=== PATIENT | female | born 1970 | race Caucasian/White ===

== ENCOUNTER → 2016-07-29 07:41 | Outpatient (CLI) | payer BC ==
[2016-01-28 06:24] VITALS: BMI 43.0
[~2016-07-29 07:41] MED LIST: CYCLOBENZAPRINE10 MG PO; HYDROCHLOROTHIA50 MG PO; HYDROCODONE-APA1 TAB PO; KLOR-CON M2020 MEQ PO; LEVSIN/ANASP0.125 MG PO; LYRICA75 MG PO; MOBIC7.5 MG PO; NAPROSYN500 MG PO; NEXIUM20 MG PO; PHENERGAN25 M1 PO; PRISTIQ50 MG PO; VITAMIN D31000 UNI2 PO; ZANAFLEX4 MG PO; ZANTAC150 MG PO
[2016-07-29 09:11] LABS: ALBUMIN 3.3 g/dL (3.4-5.0); BILIRUBIN - DIRECT 0.22 mg/dL (0.00-0.30); BILIRUBIN - INDIRECT 0.68 mg/dL (0.00-1.00); BILIRUBIN - TOTAL 0.9 mg/dL (0.2-1.3); PROTEIN - SERUM 6.5 g/dL (6.4-8.2)
== END | disposition home or self-care (01) ==
LOC: D.US 07-25 11:00
PROVIDERS: Family Medicine
DX: N28.1 Cyst of kidney, acquired (principal); K76.0 Fatty (change of) liver, not elsewhere classified

== ENCOUNTER → 2016-08-03 09:30 | Outpatient (CLI) | payer BC ==
[2016-01-28 06:24] VITALS: BMI 43.0
--- NOTE | 2016-08-03 14:05 | NUR ---
Nutrition education for gastric sleeve: S: Pt reports being heavy most of her adult life. Pt has a bad knee that needs replaced. Pt is pre-DMT2 and has a fatty liver. Pt also has fibromyalgia. Pt has purchased protein supplements, 7 pack bariatric meal prep containers and a book about bariatric surgery. Pts post-op weight goal is 180#. O: 45 y/o female Ht: 5'7" Wt: 289# IBW: 135#+/-10% BMI: 45.3 Meds: Teresaa A/P: Reviewed pre/post op diet, 1/2 cup meal size, liquids between meals, dumping syndrome, no straws or carbonated beverages, daily multivitamins and minerals for life, reviewed sample menus, no sweets, pouch stretching, no alcohol, eating out and emotional eating, daily exercise and increasing daily physical activity. Pt with very good understanding of information provided. Questions answered. Pt with a realistic post-op weight goal of 180#. RDN feels pt is ready to make the necessary changes needed to be successful with bariatric surgery. Provided pt with printed diet information and RDN name and phone number. RDN will be available if needed. Thank you for the consult.
== END | disposition home or self-care (01) ==
LOC: D.FANS 07-25 10:00
DX: Z01.818 Encounter for other preprocedural examination (principal)

== ENCOUNTER → 2016-08-18 10:36 | Outpatient (CLI) | payer BC ==
[2016-01-28 06:24] VITALS: BMI 43.0
== END | disposition home or self-care (01) ==
LOC: D.RT 10:36
DX: R06.09 Other forms of dyspnea (principal)

== ENCOUNTER 2016-09-08 15:53 | Emergency (ER) | payer BC ==
[2016-01-28 06:24] VITALS: BMI 43.0
[2016-09-08 17:51] LABS: APPEARANCE HAZY (CLEAR); BACTERIA MODERATE /hpf (NONE SEEN); BILIRUBIN NEGATIVE (NEGATIVE); COLOR YELLOW (YELLOW); GLUCOSE NEGATIVE (NEGATIVE); KETONE NEGATIVE (NEGATIVE); LEUKOCYTE ESTERASE TRACE (NEGATIVE); MUCUS <1+ /lpf (NONE SEEN); NITRITE NEGATIVE (NEGATIVE); PROTEIN NEGATIVE (NEGATIVE); SPECIFIC GRAVITY 1.015 (1.005-1.020); UROBILINOGEN NORMAL (NORMAL)
[2016-09-08 17:52] LABS: CALCIUM OXALATE CRYSTALS 0-5 /hpf (NONE SEEN)
[2016-09-08 18:32] LABS: BASOPHILS 0.4 % (0.0-2.0); EOSINOPHILS 1.5 % (0-7); HEMOGLOBIN 13.4 g/dL (12-16); IMMATURE GRANULOCYTES 0.1 % (0-5); LYMPHOCYTES 27.6 % (15-50); MCHC 34.4 g/dL (31.0-37.0); MCV 87.2 fL (80.0-100.0); MEAN PLATELET VOLUME 9.4 fL (7.4-10.4); MONOCYTES 7.3 % (2-11); NEUTROPHILS 63.1 % (40-80); PLATELET COUNT 268 10x3/uL (130-400); RBC 4.47 10x6/uL (4.00-5.40); RDW 13.5 % (11.5-14.5); WBC 7.4 10x3/uL (4.8-10.8)
[2016-09-08 18:56] LABS: ALBUMIN 3.3 g/dL (3.4-5.0); ANION GAP 14.4 mmol/L (8-16); BILIRUBIN - TOTAL 0.44 mg/dL (0.2-1.3); CALCIUM 9.1 mg/dL (8.5-10.1); CARBON DIOXIDE 27.2 mmol/L (21.0-32.0); CREATININE - SERUM 0.9 mg/dL (0.6-1.3); POTASSIUM - SERUM 3.6 mmol/L (3.5-5.1); PROTEIN - SERUM 6.5 g/dL (6.4-8.2)
== END 2016-09-08 19:28 | disposition home or self-care (01) ==
LOC: D.ER 15:53
PROVIDERS: Physician Assistant
DX: N93.9 Abnormal uterine and vaginal bleeding, unspecified (principal); K62.5 Hemorrhage of anus and rectum; N39.0 Urinary tract infection, site not specified

== ENCOUNTER → 2016-09-08 19:30 | Outpatient (CLI) | payer BC ==
[2016-01-28 06:24] VITALS: BMI 43.0
== END | disposition home or self-care (01) ==
LOC: D.SLEEP 09-04 20:00
DX: G47.33 Obstructive sleep apnea (adult) (pediatric) (principal)

== ENCOUNTER → 2016-10-07 10:57 | Outpatient (CLI) | payer BC ==
[2016-01-28 06:24] VITALS: BMI 43.0
[2016-10-07 11:17] LABS: BASOPHILS 0.3 % (0-2); EOSINOPHILS 1.6 % (0-7); IMMATURE GRANULOCYTES 0.3 % (0-5); LYMPHOCYTES 21.5 % (15-50); MCHC 34.1 g/dL (31.0-37.0); MCV 87.8 fL (80.0-100.0); MEAN PLATELET VOLUME 9.5 fL (7.4-10.4); MONOCYTES 6.5 % (2-11); NEUTROPHILS 69.8 % (40-80); PLATELET COUNT 282 10x3/uL (130-400); RBC 4.67 10x6/uL (4.00-5.40); RDW 13.3 % (11.5-14.5)
[2016-10-07 11:31] LABS: APTT 28.2 SECONDS (22.8-39.4); INR 0.96 (0.85-1.17); PROTIME 12.6 SECONDS (11.6-15.0)
[2016-10-07 11:49] LABS: HELICOBACTER PYLORI IGG NEGATIVE (NEGATIVE)
[2016-10-07 11:56] LABS: ALBUMIN 3.3 g/dL (3.4-5.0); ALKALINE PHOSPHATASE 54 U/L (46-116); ALT (SGPT) 19 U/L (10-68); BILIRUBIN - DIRECT 0.09 mg/dL (0.00-0.30); BILIRUBIN - INDIRECT 0.44 mg/dL (0.00-1.00); BILIRUBIN - TOTAL 0.53 mg/dL (0.2-1.3); CALC OSMOLALITY 276 mosm/kg (275-300); CALCIUM 9.5 mg/dL (8.5-10.1); CARBON DIOXIDE 30.1 mmol/L (21.0-32.0); CHLORIDE - SERUM 103 mmol/L (98-107); CHOL - HDL RATIO 1.8 ratio (2.3-4.1); CHOLESTEROL, TOTAL 147 mg/dL (0-200); CREATININE - SERUM 0.8 mg/dL (0.6-1.3); GLUCOSE 95 mg/dL (74-106); HDL CHOLESTEROL 84 mg/dL (32-96); LDL CHOLESTEROL 42 mg/dL (0-100); LDL-HDL RATIO 0.5 ratio (1.5-3.5); POTASSIUM - SERUM 3.9 mmol/L (3.5-5.1); PROTEIN - SERUM 7.5 g/dL (6.4-8.2); SODIUM 138 mmol/L (136-145); T4 THYROXINE 8.6 ug/dL (4.7-13.3); THYROID STIMULATING HORMONE 1.76 uIU/mL (0.36-3.74); TRIGLYCERIDE 107 mg/dL (30-200); UREA NITROGEN 16 mg/dL (7-18); eGFR NON AFRICAN AMERICAN 82 mL/min (90-120)
[2016-10-08 07:27] LABS: FOLATE (FOLIC ACID) - SERUM 13.3 ng/mL (>3.0)
[2016-10-10 08:09] LABS: HELICOBACTER PYLORI IGM AB 5.6 units (0.0-8.9)
[2016-10-10 09:09] LABS: VITAMIN D 25 HYDROXY 42.4 ng/mL (30.0-100.0)
== END | disposition home or self-care (01) ==
LOC: D.LAB 10:57
PROVIDERS: Surgery
DX: Z00.00 Encounter for general adult medical examination without abnormal findings (principal)

== ENCOUNTER → 2016-10-12 07:54 | Outpatient (CLI) | payer BC ==
[2016-01-28 06:24] VITALS: BMI 43.0
== END | disposition home or self-care (01) ==
LOC: D.RAD 07:54
DX: K29.70 Gastritis, unspecified, without bleeding (principal); E66.01 Morbid (severe) obesity due to excess calories

== ENCOUNTER 2016-10-17 08:59 | Day surgery (SDC) | payer BC ==
[~2016-10-17] VITALS: Ht 170.2 cm; Wt 132.3 kg
[2016-10-17] MEDS ORDERED: VITAMIN B-12500 MC1 PO (11:08)
[2016-10-17] MEDS ORDERED: LUNESTA2 M1 PO (11:08)
[2016-10-17] MEDS ORDERED: PROBIOTIC1 EAC1 PO (11:09)
[2016-10-17] MEDS ORDERED: VITAMIN D5000 UNIT PO (11:09)
[2016-10-17 11:13] VITALS: Ht 170.2 cm; Wt 132.3 kg
[2016-10-17 11:50] LABS: HEMATOCRIT 38.1 % (36.0-48.0); HEMOGLOBIN 13.1 g/dL (12-16); MCH 29.9 pg (26.0-34.0); MCHC 34.4 g/dL (31.0-37.0); MEAN PLATELET VOLUME 10.2 fL (7.4-10.4); RBC 4.38 10x6/uL (4.00-5.40); RDW 13.3 % (11.5-14.5); WBC 6.3 10x3/uL (4.8-10.8)
--- NOTE | 2016-10-17 13:58 | NUR ---
1330-RECD TO ROOM FROM GI LAB. RESP WITH EASE. IV PATENT. 1335-FULL LIQUIDS SERVED. 1355-IV D/C. DISCHARGE INSTRUCTIONS REVIEWED. 1400-D/C HOME VIA WHEELCHAIR WITH SPOUSE.
--- NOTE | 2016-10-18 08:09 | OP ---
PATIENT NAME: RIMA LARSON MEDICAL RECORD: [id number] :72 LOCATION:D[facility] ADMISSION DATE: SURGEON: LAUREN DAVIS MD DATE OF OPERATION: 10/17/2016 SURGEON: Lauren Davis MD PREOPERATIVE DIAGNOSES: 1. Gastritis. 2. Morbid obesity. 3. Body mass index 45-50. 4. Fatty liver. POSTOPERATIVE DIAGNOSES: 1. Gastritis. 2. Morbid obesity. 3. Body mass index 45-50. 4. Fatty liver. PROCEDURES PERFORMED: Esophagogastroduodenoscopy with biopsy. ANESTHESIA: Total intravenous anesthesia. ESTIMATED BLOOD LOSS: Minimal. Case was contaminated. SPECIMENS: 1. Duodenum. 2. Antrum. 3. Stomach. 4. GE junction. OPERATIVE COURSE: After consent was obtained, the patient was taken to the operating room and placed in the supine position on the operating table. Next, total intravenous anesthesia was given. A timeout was taken to confirm the correct patient and procedure. Hurricaine Woodridge was administered. A bite block was placed. The scope was passed over to the biteblock into the oropharynx. It was passed posterior to the epiglottis into the upper esophageal sphincter. Scope was advanced under direct endoscopic vision into the esophagus and stomach. The stomach was insufflated. The pylorus was identified. The pylorus was intubated. The scope was advanced into the first and second portion of the duodenum. The duodenum appeared within normal limits. Multiple duodenal biopsies were taken. The scope was withdrawn to the pylorus. There was linear streaking associated with chronic enteritis noted in the region of the prepylorus and antral region. Multiple biopsies were taken. There was some mild gastritis noted upon evaluation in the stomach. Multiple biopsies taken. The scope was retroflexed. There is a moderate sized hiatal hernia noted. Upon withdrawal of the scope to the GE junction, it was noted that it was linear ulcerations of the GE junction consistent with grade I esophagitis as well as a moderate sized hiatal hernia. Multiple biopsies were taken at the GE junction. The scope was reinserted stomach, the stomach desufflated. The esophagus was evaluated upon withdrawal of the scope. There were no abnormalities associated with the esophagus. At the end of the case, all needle and instrument counts were correct. No complications occurred. The patient tolerated the procedure OPERATIVE REPORT [id number] RIMA LARSON well. Postoperatively, the patient was transferred to the recovery room in satisfactory condition. TRANSINT:[id number] Voice Confirmation ID: [id number] DOCUMENT ID: [id number] LAUREN DAVIS MD at 0809 CC: [id number] DICTATION DATE: 10/17/16 1312 ACUTE CARE SURGEON: 10/17/16 2305 [facility] 10/17/16 [place] [id number] [place] [id number]
== END 2016-10-17 14:00 | disposition home or self-care (01) ==
LOC: D.OPS 08:59
PROVIDERS: Anesthesiology
DX: K29.70 Gastritis, unspecified, without bleeding (principal); E66.01 Morbid (severe) obesity due to excess calories; Z68.42 Body mass index [BMI] 45.0-49.9, adult; K76.0 Fatty (change of) liver, not elsewhere classified

== ENCOUNTER 2016-10-26 05:13 | Inpatient (IN) | payer OTHER ==
[2016-10-25 10:00] LABS: HEMATOCRIT 41.9 % (36.0-48.0); HEMOGLOBIN 14.1 g/dL (12-16); MCH 29.8 pg (26.0-34.0); MCHC 33.7 g/dL (31.0-37.0); MCV 88.6 fL (80.0-100.0); MEAN PLATELET VOLUME 9.6 fL (7.4-10.4); RBC 4.73 10x6/uL (4.00-5.40); RDW 13.4 % (11.5-14.5); WBC 8.3 10x3/uL (4.8-10.8)
[2016-10-25 10:15] LABS: CALC OSMOLALITY 276 mosm/kg (275-300); CARBON DIOXIDE 26.2 mmol/L (21.0-32.0); CHLORIDE - SERUM 105 mmol/L (98-107); CREATININE - SERUM 0.7 mg/dL (0.6-1.3); GLUCOSE 99 mg/dL (74-106); SODIUM 138 mmol/L (136-145); UREA NITROGEN 15 mg/dL (7-18); eGFR NON AFRICAN AMERICAN > 90 mL/min (90-120)
[~2016-10-26] VITALS: Ht 170.2 cm; Wt 132.3 kg
[2016-10-26] VITALS (8 sets, daily range): BP systolic 116–141; BP diastolic 59–83; Ht 170.2 cm; Wt 132.3 kg
--- NOTE | ~2016-10-26 | OP ---
PATIENT NAME: RIMA LARSON MEDICAL RECORD: [id number] :72 LOCATION:D[facility] ADMISSION DATE:10/26/16 SURGEON: ALYSA BETANCUR MD DATE OF OPERATION: 10/26/2016 PHARMACEUTICAL PROCESS ENGINEER NOTE I assisted Dr. MAC Davis with the laparoscopic hiatal hernia repair as well as laparoscopic sleeve gastrectomy for morbid obesity. My involvement in the operation included scrubbing in after the first trocar had been placed. I placed 2 trocars on the left side. I ran the camera during a portion of the case. I retracted tissue. I used the Harmonic scalpel to dissect up into the left side of the mediastinum; also I the stomach and esophagus from the left jaime. I excised some of the cardial fat. I retracted the esophagus as the hiatal hernia repair was being performed by Dr. Davis. I suctioned. I irrigated. I retracted while the gastrectomy was being performed. I retracted the suture as he was performing the sleeve gastrectomy. I cut the suture. I irrigated. I manipulated the bougie. I aspirated fluid. I then scrubbed out as the trocar sites were being closed. TRANSINT:[id number] Voice Confirmation ID: [id number] DOCUMENT ID: [id number] ALYSA BETANCUR MD CC: [id number] DICTATION DATE: 10/26/1639 POSITION DESCRIPTION MANAGER: 10/26/16 [address] [facility] [address] [place] [address]
[~2016-10-26 05:13] MED LIST changes: +LUNESTA2 M1 PO; +PROBIOTIC1 EAC1 PO; +VITAMIN B-12500 MC1 PO; +VITAMIN D250000 UNIT PO; +VITAMIN D5000 UNIT PO
--- NOTE | 2016-10-26 10:50 | NUR ---
RECEIVED TO ROOM 2228 FROM PACU AT THIS TIME VIA STRETCHER. PT TRANSFERRED WITH 4 PERSON ASSIST TO BED. FAMILY AT BEDSIDE. PT IS ALERT AND ORIENTED. POST OP VITAL SIGNS INITIATED PER PROTOCOL. SCD'S APPLIED TO BLE AND WNL. OXYGEN ON 2L WITH RESPIRATIONS SHALLOW AND EVEN. OXYGEN SATURATIONS 96%. PROVIDED PT WITH INCENTIVE SPIROMETER PER ORDER AND INSTRUCTED PT AND HER SPOUSE ON USE. PT AND SPOUSE VERBALIZED UNDERSTANDING. IV TO RIGHT WRIST PATENT WITH LR AT 150 ML/HR PER ORDER. POST OP SIGN STATING NO CARBONATION, STRAWS AND PT MUST DRINK 30ML OF LIQUID EVERY 30 MINUTES APPLIED TO DOOR AND ABOVE PT'S BED. PT AND FAMILY VERBALIZED UNDERSTANDING. PROVIDED PT WITH ICE CHIPS AND A SPOON. CUP OF ICE WATER WITH A LID AND NO STRAW IN ROOM WITH TWO 30 ML MEDICATION CUPS FOR PROPER MEASUREMENT. INSTRUCTED PT TO START 30 ML EVERY 30 MINUTES BEGINNING AT 11 O'CLOCK. ONCE SHE WAS FINISHED WITH A CUP TO TURN IT OVER ON A [place], SO THAT SHE COULD EASILY KEEP TRACK OF WHAT SHE HAD ALREADY TAKEN IN FOR THAT HOUR. PT AND SPOUSE VERBALIZED UNDERSTANDING. [place] HAT APPLIED TO COMMODE, SO THAT STRICT I&O'S COULD BE OBTAINED PER ORDER. CALL LIGHT IN REACH AND FAMILY REMAINS AT BEDSIDE. WILL CONTINUE WITH PLAN OF CARE.
--- NOTE | 2016-10-26 11:14 | NUR ---
PRN SMOKE CONTROL SUPERVISOR INITIATED AND INSTRUCTED PT ON USE AT THIS TIME. PRN MYLICON, ZOFRAN AND TORADOL ADMINISTERED PER ORDERS. PAIN 9/10 INCISIONALLY AND PT COMPLAINING OF GAS PAIN. EXPLAINED TO PT AND HER FAMILY THAT SHE WOULD BE GETTING UP AT 3 O'CLOCK TO AMBULATE PER DR BOYER'S ORDERS. PT AND FAMILY VERBALIZED UNDERSTANDING. CALL LIGHT IN REACH, WILL CONTINUE WITH PLAN OF CARE.
--- NOTE | 2016-10-26 13:25 | NUR ---
CONTINUES WITH 30ML OF FLUID EVERY 30 MINUTES PER ORDER. FAMILY REMAINS AT BEDSIDE. PT DENIES NAUSEA. DIRECTOR OF PROFESSIONAL SERVICES IN USE. SCD'S ON AND IN WORKING ORDER. WILL CONTINUE WITH PLAN OF CARE.
--- NOTE | 2016-10-26 16:25 | NUR ---
AMBULATING AROUND NURSES STATION X1 WITH STANDBY ASSISTANCE. PT ASSISTED TO BATHROOM WHERE SHE VOIDED 500 ML OF DARK, CONCENTRATED URINE. PT BACK TO BED PER AND SCD'S ON AND IN WORKING ORDER. CALL LIGHT IN REACH, WILL CONTINUE WITH PLAN OF CARE.
--- NOTE | 2016-10-26 16:46 | NUR ---
ORDER OBTAINED TO CHANGE CARDIOVASCULAR SONOGRAPHER SETTINGS. ORDER PLACED INTO MEDITECH AND CARDIOVASCULAR SONOGRAPHER SETTINGS CHANGED PER ORDER. CALL LIGHT IN REACH AND FAMILY REMAINS AT BEDSIDE. CALL LIGHT IN REACH. SCD'S ON AND INCENTIVE SPIROMETER IN USE. WILL CONTINUE WITH PLAN OF CARE.
--- NOTE | 2016-10-26 20:30 | NUR ---
AWAKE ALERT. NO COMPLAINTS VOICED. COIN MACHINE COLLECTOR MORPHINE IN USE FOR PAIN CONTROL DRSGS TO ABD INCISIONS CLEAN AND INTACT. MOTHER AT BEDSIDE.
--- NOTE | 2016-10-26 22:01 | NUR ---
AMBULATED X 2 TRIPS AROUND UNIT. TOLERATED WELL. NO COMPLAINTS OF NAUSEA OR DIZINESS.
--- NOTE | 2016-10-27 00:39 | NUR ---
RESTING QUIETLY. NO DISTRESS NOTED. CL IN REACH
[2016-10-27 04:00] VITALS: BP 118/71
[2016-10-27 05:36] LABS: BASOPHILS 0 % (0-2); EOSINOPHILS 0 % (0-7); HEMOGLOBIN 12.4 g/dL (12-16); IMMATURE GRANULOCYTES 0.1 % (0-5); LYMPHOCYTES 5.8 % (15-50); MCH 29.5 pg (26.0-34.0); MCHC 33.5 g/dL (31.0-37.0); MCV 87.9 fL (80.0-100.0); MEAN PLATELET VOLUME 9.8 fL (7.4-10.4); MONOCYTES 7.1 % (2-11); PLATELET COUNT 275 10x3/uL (130-400); RBC 4.21 10x6/uL (4.00-5.40); RDW 13.3 % (11.5-14.5)
[2016-10-27 05:43] LABS: WBC 13.5 10x3/uL (4.8-10.8)
[2016-10-27 05:59] LABS: ALBUMIN 2.8 g/dL (3.4-5.0); ANION GAP 11.5 mmol/L (8-16); BILIRUBIN - TOTAL 0.51 mg/dL (0.2-1.3); CALCIUM 8.3 mg/dL (8.5-10.1); CARBON DIOXIDE 26.5 mmol/L (21.0-32.0); PROTEIN - SERUM 6.6 g/dL (6.4-8.2)
--- NOTE | 2016-10-27 06:12 | NUR ---
AWAKE WIHT NO COMPLAINTS VOICED. CL IN REACH.
--- NOTE | 2016-10-27 07:20 | NUR ---
ASSSESSMENT COMPLETE. IV TO R WRIST PATENT. LR INFUSING AT 150 CC/HR VIA PUMP. PYTHON ARCHITECT MORPHINE 2-10-30 IN USE FOR PAIN CONTROL. SCDS IN USE TO BILAT LEGS. O2 2L NC IN USE. ABDOMINAL INCISIONS X 6 WITH STERI STRIPS INTACT.
--- NOTE | 2016-10-27 08:00 | NUR ---
OFF FLOOR TO XRAY VIA WC.
[2016-10-27 08:02] VITALS: BP 127/71
--- NOTE | 2016-10-27 08:29 | OP ---
PATIENT NAME: RIMA LARSON MEDICAL RECORD: [id number] :72 LOCATION:[facility] ADMISSION DATE:10/26/16 SURGEON: LAUREN DAVIS MD DATE OF OPERATION: 10/26/2016 SURGEON: Lauren Davis MD PREOPERATIVE DIAGNOSES: 1. Morbid obesity. 2. Degenerative joint disease involving multiple joints. 3. Dyspnea on exertion. 4. Body mass index 45-49.9. 5. Fatty liver. 6. Urinary incontinence. 7. Varicose veins. POSTOPERATIVE DIAGNOSES: 1. Morbid obesity. 2. Degenerative joint disease involving multiple joints. 3. Dyspnea on exertion. 4. Body mass index 45-49.9. 5. Fatty liver. 6. Urinary incontinence. 7. Varicose veins. PROCEDURE PERFORMED: 1. Laparoscopic hiatal hernia repair. 2. Laparoscopic vertical sleeve gastrectomy. ANESTHESIA: General. COMPLICATIONS: None. SPECIMENS: Partial gastrectomy. Case is clean contaminated. ESTIMATED BLOOD LOSS: 40 cc. OPERATIVE COURSE: After consent was obtained, the patient was taken to the operating room and placed in the supine position on the operating table. Next, general anesthesia was given via endotracheal intubation. After a timeout was performed that confirmed the correct patient and procedure, the abdomen was prepped and draped in typical sterile fashion. Local anesthetic was injected just above the umbilicus. A stab incision was made with an 11-blade scalpel. Using an 11-mm bladeless optical trocar, the abdomen was entered under direct laparoscopic vision. Adequate pneumoperitoneum was achieved. The abdominal cavity was inspected. There was no evidence of bowel injury. No evidence of bleeding. At this time, the patient was placed in the steep reverse Trendelenburg position. The remaining trocars were placed, two 5-mm trocars in the left lateral quadrant, a 12-mm trocar and 5-mm trocar in the right lateral quadrant, placing the Terell liver retractor in the subxiphoid position. All trocars were placed after the administration of local anesthetic and under direct laparoscopic vision, a Terell liver retractor was then used to elevate the left lobe of the liver, exposing the GE junction, the pylorus was OPERATIVE REPORT [id number] RIMA LARSON identified. Starting approximately 6 cm from the pylorus, the greater curvature of the stomach was mobilized. The short gastrics were taken with Harmonic scalpel. The greater curvature was mobilized all the way to the level of left crura. The left crura was skeletonized. At this time, the gastrohepatic ligament was opened with the Harmonic scalpel. Dissection continued to the level of the right crura with the Harmonic scalpel. Right crura was skeletonized. Circumferential dissection of the hiatal hernia was performed at the GE junction. The mediastinum was bluntly dissected until approximately 4 cm of intraabdominal esophagus were obtained. The hernia sac was excised. The hiatal hernia defect was closed with an 0 polypropylene Stratafix suture in a continuous fashion. At this time, a 40-Slovak ViSiGi bougie was passed transorally into the stomach. It was advanced to the pylorus along the lesser curvature of the stomach, it was placed to suction. A sleeve gastrectomy was performed using the linear powered stapler with gold load heidi along the course of the bougie. The partial gastrectomy specimen was placed in the left lateral quadrant. The proximal edge was imbricated using 2-0 Stratafix suture. The abdomen was copiously irrigated and suctioned. The sleeve was placed. The upper abdomen was then filled with irrigation. The ViSiGi device was used to insufflate the stomach. A bowel clamp was placed across the first portion of the duodenum. The stomach was inflated with the ViSiGi bougie. A leak test was performed. There was no evidence of leak. At this time, the ViSiGi was placed back to suction. The suction was turned off and the ViSiGi device was removed. The stomach was desufflated appropriately. All remaining irrigation of the abdomen was suctioned. The entire abdominal cavity was inspected. There was no evidence of bowel injury. No evidence of bleeding. The Terell liver retractor was removed. The 5-mm scope was inserted. The 11-mm trocar and 12-mm trocar were removed. Prior to closure of the 12-mm trocar site, the partial gastrectomy specimen was removed; it was grasped with the tenaculum. We removed the 12-mm trocar site and sent for permanent pathology. At this time, all remaining instruments removed. The abdomen was desufflated. Trocars were removed. Skin was closed with 4-0 Monocryl, Mastisol and Steri-Strips. At the end of the case, all needle and instrument counts were correct. No complications occurred. The patient was extubated and transferred to the PACU in stable condition. TRANSINT:[id number] Voice Confirmation ID: [id number] DOCUMENT ID: [id number] LAUREN DAVIS MD at 0829 CC: [id number] DICTATION DATE: 10/26/16 0956 EMBEDDED SYSTEMS ENGINEER: 10/26/16 1118 [place] [address]
[2016-10-27] MEDS ORDERED: HYDROCODON-ACE1 EAC7 PO (08:30)
--- NOTE | 2016-10-27 09:50 | NUR ---
D/C PAPERWORK REVIEWED WITH PT AND SPOUSE. DENIES QUESTIONS OR CONCERNS. IV TO RIGHT WRIST D/C WITH CATH TIP INTACT. CALL LIGHT IN REACH, WILL CONTINUE WITH PLAN OF CARE.
--- NOTE | 2016-10-27 10:09 | NUR ---
Nutrition education for post-op gastric sleeve: RDCharla visited with pt re: post-op diet instructions. Pt with very good understanding of post-op diet restrictions. Pt has all information for post-op diet at home. Questions answered. Thank you for the consult.
== END 2016-10-27 10:03 | disposition home or self-care (01) | DRG 621 ==
LOC: D.SDCHOLD 05:13 → D.MS 05:13 → D.SDCHOLD 07:30 → D.MS 09:54
PROVIDERS: Anesthesiology; ADMIT Surgery
PROC: 0BQS4ZZ (ICD-10-PCS; principal; 2016-10-26 07:30)
PROC: 0BQR4ZZ (ICD-10-PCS; principal; 2016-10-26 07:30)
PROC: 0DB64Z3 Excision of Stomach, Percutaneous Endoscopic Approach, Vertical (ICD-10-PCS; principal; 2016-10-26 07:30)
DX: E66.01 Morbid (severe) obesity due to excess calories (principal); Z68.42 Body mass index [BMI] 45.0-49.9, adult; M15.9 Polyosteoarthritis, unspecified; K76.0 Fatty (change of) liver, not elsewhere classified; R32 Unspecified urinary incontinence; I83.90 Asymptomatic varicose veins of unspecified lower extremity; K44.9 Diaphragmatic hernia without obstruction or gangrene

== ENCOUNTER → 2016-11-30 14:00 | Outpatient (CLI) | payer BC ==
[2016-10-26 11:37] VITALS: BMI 45.7
[~2016-11-30 14:00] MED LIST changes: +HYDROCODON-ACE1 EAC7 PO
== END | disposition home or self-care (01) ==
LOC: D.US 13:30
DX: R80.9 Proteinuria, unspecified (principal)

== ENCOUNTER 2016-12-20 11:47 | Emergency (ER) | payer BC ==
[2016-10-26 11:37] VITALS: BMI 45.7
[2016-12-20 13:05] LABS: BASOPHILS 0.3 % (0-2); EOSINOPHILS 1.7 % (0-7); HEMATOCRIT 40.8 % (36.0-48.0); HEMOGLOBIN 14.3 g/dL (12-16); IMMATURE GRANULOCYTES 0.3 % (0-5); LYMPHOCYTES 15.6 % (15-50); MCH 30.1 pg (26.0-34.0); MCV 85.9 fL (80.0-100.0); MEAN PLATELET VOLUME 10.9 fL (7.4-10.4); MONOCYTES 8.2 % (2-11); NEUTROPHILS 73.9 % (40-80); PLATELET COUNT 275 10x3/uL (130-400); RBC 4.75 10x6/uL (4.00-5.40); RDW 15.3 % (11.5-14.5); WBC 7.6 10x3/uL (4.8-10.8)
[2016-12-20 13:20] LABS: ALBUMIN 3.4 g/dL (3.4-5.0); ALKALINE PHOSPHATASE 51 U/L (46-116); ALT (SGPT) 19 U/L (10-68); BILIRUBIN - TOTAL 0.63 mg/dL (0.2-1.3); CALC OSMOLALITY 274 mosm/kg (275-300); CALCIUM 8.9 mg/dL (8.5-10.1); CARBON DIOXIDE 18.2 mmol/L (21.0-32.0); CHLORIDE - SERUM 103 mmol/L (98-107); CREATININE - SERUM 0.7 mg/dL (0.6-1.3); GLUCOSE 104 mg/dL (74-106); MAGNESIUM - SERUM 1.6 mg/dL (1.8-2.4); POTASSIUM - SERUM 3.7 mmol/L (3.5-5.1); PROTEIN - SERUM 7.4 g/dL (6.4-8.2); SODIUM 139 mmol/L (136-145); UREA NITROGEN 4 mg/dL (7-18); eGFR NON AFRICAN AMERICAN > 90 mL/min (90-120)
[2016-12-20 16:57] LABS: APPEARANCE HAZY (CLEAR); BILIRUBIN NEGATIVE (NEGATIVE); COLOR DK YELLOW (YELLOW); GLUCOSE NEGATIVE (NEGATIVE); KETONE LARGE mg/dL (NEGATIVE); LEUKOCYTE ESTERASE TRACE (NEGATIVE); NITRITE NEGATIVE (NEGATIVE); PROTEIN TRACE mg/dL (NEGATIVE); SPECIFIC GRAVITY 1.025 (1.005-1.020); UROBILINOGEN NORMAL (NORMAL)
[2016-12-20 16:58] LABS: EPITHELIAL CELLS 0-5 /hpf (0-5); RED CELLS - URINE >50 /hpf (0-5)
[2016-12-20 16:59] LABS: BACTERIA FEW /hpf (NONE SEEN); YEAST >1+ /hpf (NONE SEEN)
== END 2016-12-20 17:15 | disposition home or self-care (01) ==
LOC: D.ER 11:47
PROVIDERS: Emergency Medicine
DX: R10.9 Unspecified abdominal pain (principal); R11.10 Vomiting, unspecified; E83.42 Hypomagnesemia

== ENCOUNTER 2016-12-22 14:09 | Inpatient (IN) | payer BC ==
[~2016-12-22] VITALS: Ht 170.2 cm; Wt 109.8 kg
--- NOTE | ~2016-12-22 | HEMODYNAMI ---
PATIENT:RIMA LARSON MEDICAL RECORD: [id number] : 72 LOCATION:[facility] ADMISSION DATE: 12/22/16 Generatedon:12/30/201616:23 Patient name: RIMA LARSON Patient #: [id number] SSN: : 1970 Date of study: 12/30/2016 Page: Of Hemodynamic Procedure Report Patient Data Patient Demographics Procedure consent was obtained First Name: RIMA Gender: Female Last Name: NEO : 1970 Middle Initial: MIKEY Age: 46 year(s) Patient #: [id number] Race: Unknown Additional ID: [id number] Contact details Address: [address] [place] [address] RO[address] State: [place] City: [place] Zip code: [address] Admission Admission Data Admission Date: 12/22/2016 Admission Time: 17:04 Room #: D.2216 Procedure Procedure Types Cath Procedure Peripheral Cath Diagnostic Procedure Miscellaneous Procedure Description Procedure Date Procedure Date: 12/30/2016 Procedure Start Time: 16:14 Procedure Staff Name Function Oneal Hatfield MD Performing Physician Brandon Mckeon RT Scrub Brandon Mckeon RT Monitor Tamika Mckeon RN Nurse Procedure Data Cath Procedure Fluoroscopy Diagnostic fluoroscopy Total fluoroscopy Time: 0.7 time: 0.7 min min Diagnostic fluoroscopy Total fluoroscopy dose: 3 dose: 3 mGy mGy Hemodynamics Rest Pre Cath Intra NCS Post Cath Procedure Log Time Note 15:55:47 Time tracking: Regular hours 15:56:21 Brandon Mckeon RT (R) (CV) sent for patient. Start room use. 15:56:39 Patient received from Med/Surg to IR Alert and oriented. Tansferred to table in Supine position. 15:56:42 Signed procedure consent form obtained from patient. 15:56:44 Use device set PICC 15:56:46 Bag Decanter opened to sterile field. 15:56:46 Sterile Angiographic Pack opened to sterile field. 15:56:48 SorbaView Shield opened to sterile field. 15:56:51 Pre-op teaching completed and patient verbalized understanding. 15:56:56 Patient pain scale 0/10 no pain. 15:57:06 Right Arm area was prepped with chlora-prep and draped in sterile fashion 16:02:32 --------ALL STOP TIME OUT------ 16:02:33 Final Timeout: patient, procedure, and site verified with staff and physician. All members of the team are in agreement. 16:14:03 Procedure started. 16:14:03 Full Disclosure recording started 16:14:10 Local anesthetic to right arm with Lidocaine 1% by Oneal Hatfield MD.INITIAL ACCESS ONLY 16:17:21 SorbaView Shield opened to sterile field. 16:17:29 PowerPICC 5Fr double lumen catheter opened to sterile field. 16:19:20 picc trimmed 40 cm 16:21:40 Procedure ended.(Physican Out) 16:22:00 Fluoroscopy time 00.70 minutes. 16:22:06 Fluoroscopy dose: 3 mGy 16:22:06 Flurop Dose total: 3 16:22:09 Sharps counted by scrub and verified by R.N. 16:22:18 Post right arm:stable 16:22:20 Post Procedure Pulses reassessed and unchanged 16:22:29 Post procedure instruction explained to patient.Patient verbalizes understanding. 16:22:30 Procedure and supply charges have been captured, reviewed, submitted and are correct. 16:22:32 Report given to Med/Surg. 16:22:37 Patient transfered to Med/Surg with Wheelchair. Device Usage Item Name Manufacture Quantity Catalog Hospital Part Current Minimal Lot# / Number Charge Number Stock Stock Serial# Code Bag Decanter Microtek 1 2002 [id number] 5 [employer] Sterile Cardinal 1 [id number] 5 Angiographic Health Pack SorbaView Centurion 2 [id number] 5 Shield PowerPICC Bard 1 [id number] 5 5Fr double lumen catheter Signature Audit [place] Stage Time Signature Unsigned Intra-Procedure 12/30/2016 Brandon 4:23:41 PM Shuffield RT (R) (CV) Signatures Monitor : Brandon Signature : Shuffield RT Date : Time : [address] [place] [address]
[2016-12-22 15:33] LABS: APPEARANCE SLT CLOUDY (CLEAR); BILIRUBIN NEGATIVE (NEGATIVE); COLOR YELLOW (YELLOW); GLUCOSE NEGATIVE (NEGATIVE); KETONE LARGE mg/dL (NEGATIVE); LEUKOCYTE ESTERASE NEGATIVE (NEGATIVE); NITRITE NEGATIVE (NEGATIVE); PROTEIN TRACE mg/dL (NEGATIVE); SPECIFIC GRAVITY 1.025 (1.005-1.020); UROBILINOGEN NORMAL (NORMAL)
[2016-12-22 15:35] LABS: BACTERIA FEW /hpf (NONE SEEN); EPITHELIAL CELLS 0-5 /hpf (0-5); WHITE CELLS - URINE RARE /hpf (0-5)
[2016-12-22 15:50] LABS: BASOPHILS 0.5 % (0-2); EOSINOPHILS 0.8 % (0-7); HEMATOCRIT 39.9 % (36.0-48.0); HEMOGLOBIN 13.6 g/dL (12-16); IMMATURE GRANULOCYTES 0.2 % (0-5); LYMPHOCYTES 10.7 % (15-50); MCH 29.9 pg (26.0-34.0); MCHC 34.1 g/dL (31.0-37.0); MCV 87.7 fL (80.0-100.0); MEAN PLATELET VOLUME 10.5 fL (7.4-10.4); MONOCYTES 9.1 % (2-11); NEUTROPHILS 78.7 % (40-80); PLATELET COUNT 239 10x3/uL (130-400); RBC 4.55 10x6/uL (4.00-5.40); WBC 6.2 10x3/uL (4.8-10.8)
[2016-12-22 16:08] LABS: ALKALINE PHOSPHATASE 45 U/L (46-116); ALT (SGPT) 18 U/L (10-68); AMYLASE - SERUM 60 U/L (25-115); BILIRUBIN - TOTAL 0.69 mg/dL (0.2-1.3); CALC OSMOLALITY 281 mosm/kg (275-300); CALCIUM 8.5 mg/dL (8.5-10.1); CARBON DIOXIDE 19.4 mmol/L (21.0-32.0); CHLORIDE - SERUM 107 mmol/L (98-107); CREATININE - SERUM 0.6 mg/dL (0.6-1.3); GLUCOSE 91 mg/dL (74-106); LIPASE 455 U/L (73-393); POTASSIUM - SERUM 3.6 mmol/L (3.5-5.1); PROTEIN - SERUM 6.9 g/dL (6.4-8.2); SODIUM 143 mmol/L (136-145); UREA NITROGEN 3 mg/dL (7-18); eGFR NON AFRICAN AMERICAN > 90 mL/min (90-120)
--- NOTE | 2016-12-22 17:40 | NUR ---
PT TO ROOM 2216 FROM ER VIA WHEELCHAIR.SHE IS WITHOUT VOMITING AT PRESENT,BUT HAS SOME NAUSEA.SHE DENIES PAIN.ASSESSMENT PER FLOW SHEET.ORIENTATION TO ROOM.CALL LIGHT IN REACH.
[2016-12-22] MEDS ORDERED: DILAUDID4 MG PO (17:47)
[2016-12-22] MEDS ORDERED: OMEPRAZOLE40 MG PO (17:48)
[2016-12-22] MEDS ORDERED: LEVSIN/ANASP0.125 MG PO (17:48)
[2016-12-22] MEDS ORDERED: POTASSIUM CHLO20 MEQ PO (17:49)
[2016-12-22 18:11] VITALS: BP 127/74; BMI 38.9
--- NOTE | 2016-12-22 19:36 | NUR ---
PATIENT AWAKE, ALERT AND ORIENTED X'S 4. RESPIRATIONS ARE EVEN AND UNLABORED ON ROOM AIR. NO SIGNS OF DISTRESS NOTED. PATIENT HAS AN EMESIS BAG IN HER LAP, SHE IS WATCHING T.V. PATIENT STATED SHE IS NAUSEOUS. AND SHE IS WONDERING WHEN SHE IS GOING FOR A MRI. PAGED . HE SAID TO CHANGE THE ZOFRAN ORDER FROM Q6HP TO Q4HP AND GIVE A DOSE NOW. HE ALSO SAID THE MRI NEEDS TO BE DONE TONIGHT. CALLED [facility] AND NOTIFIED THEM OF THE MRI ORDER. FLUSHED IV WITH SALINE, PATIENT VERBALIZED PAIN AT THE IV SITE WHEN FLUSHING, ASPIRATED GOOD BLOOD RETURN, SHOWED PATIENT. FLUSHED SLOWLY WITH THE REMAINDER OF THE FLUSH, PATIENT DID NOT VERBALIZE OR SHOW ANY SIGN OF PAIN. ADMINISTERED ZOFRAN. PATIENT DENIES FURTHER NEEDS AT THIS TIME.
[2016-12-22 20:00] VITALS: BP 118/70
--- NOTE | 2016-12-22 20:05 | NUR ---
PATIENT LEFT FOR MRI VIA WHEELCHAIR.
--- NOTE | 2016-12-22 21:55 | NUR ---
APPLIED SCDS TO BILATERAL LEGS
--- NOTE | 2016-12-22 21:58 | NUR ---
PATIENT BACK IN BED FROM THE BATHROOM (URINATED), REQUESTED PAIN MEDICATION FOR PAIN IN LOWER ABDOMEN. ADMINISTERED MORPHINE IVP. PATIENT DENIES FURTHER NEEDS AT THIS TIME. OFFERED PATIENT SWABS TO SWAB HER MOUTH FOR MOISTURE, PATIENT REFUSED. OFFERED HER MOUTH WASH, SHE REFUSED. TOLD HER TO TELL ME IF SHE CHANGES HER MIND.
[2016-12-22 23:52] VITALS: BP 100/57
[2016-12-23 03:51] VITALS: BP 97/60
[2016-12-23 04:24] LABS: BASOPHILS 0.4 % (0-2); EOSINOPHILS 1.6 % (0-7); HEMATOCRIT 36.3 % (36.0-48.0); HEMOGLOBIN 12.3 g/dL (12-16); IMMATURE GRANULOCYTES 0.2 % (0-5); LYMPHOCYTES 29.1 % (15-50); MCH 29.4 pg (26.0-34.0); MCHC 33.9 g/dL (31.0-37.0); MCV 86.6 fL (80.0-100.0); MEAN PLATELET VOLUME 10.6 fL (7.4-10.4); MONOCYTES 12.8 % (2-11); NEUTROPHILS 55.9 % (40-80); PLATELET COUNT 235 10x3/uL (130-400); RBC 4.19 10x6/uL (4.00-5.40); RDW 15.9 % (11.5-14.5)
[2016-12-23 04:50] LABS: ALBUMIN 2.6 g/dL (3.4-5.0); ALKALINE PHOSPHATASE 40 U/L (46-116); ALT (SGPT) 15 U/L (10-68); AMYLASE - SERUM 49 U/L (25-115); BILIRUBIN - DIRECT 0.16 mg/dL (0.00-0.30); BILIRUBIN - INDIRECT 0.53 mg/dL (0.00-1.00); BILIRUBIN - TOTAL 0.69 mg/dL (0.2-1.3); CALC OSMOLALITY 281 mosm/kg (275-300); CALCIUM 8.2 mg/dL (8.5-10.1); CHLORIDE - SERUM 109 mmol/L (98-107); CREATININE - SERUM 0.5 mg/dL (0.6-1.3); GLUCOSE 123 mg/dL (74-106); LIPASE 411 U/L (73-393); MAGNESIUM - SERUM 1.6 mg/dL (1.8-2.4); PHOSPHOROUS 2.7 mg/dL (2.5-4.9); POTASSIUM - SERUM 3.2 mmol/L (3.5-5.1); PROTEIN - SERUM 5.9 g/dL (6.4-8.2); SODIUM 143 mmol/L (136-145); eGFR NON AFRICAN AMERICAN > 90 mL/min (90-120)
[2016-12-23 04:53] LABS: UREA NITROGEN 2 mg/dL (7-18)
--- NOTE | 2016-12-23 07:20 | NUR ---
ASSESSMENT PER FLOW SHEET.PT WITHOUT DISTRESS.STATES SHE STILL HAS SOME NAUSEA,BUT NO EMESIS.FAMILY AT BEDSIDE.MONITOR
--- NOTE | 2016-12-23 07:50 | HP ---
PATIENT: RIMA LARSON MEDICAL RECORD: [id number] ACCOUNT: [id number] LOCATION:D.[facility] : 72 ADMISSION DATE: 12/22/16 HISTORY AND PHYSICAL EXAMINATION HISTORY OF PRESENT ILLNESS: A 46-year-old female who presented to the Emergency Room with persistent nausea and vomiting for the past 3 days. She was in the ER on Monday with similar symptoms, was told she had a kidney stone, was treated with pain meds and encouraged hydration. Symptoms have persisted, presents again today. She was found to have elevated lipase and with persistent symptoms, admitted for mild pancreatitis. PAST MEDICAL HISTORY: Significant for obesity, had gastric sleeve placed in September, has had some electrolyte abnormalities, also history of neuropathy, GERD, edema. REVIEW OF SYSTEMS: GENERAL: Weight loss from the gastric sleeve. HEENT: No cephalgia, visual changes, tinnitus, epistaxis, or dysphagia. CARDIOVASCULAR: Denies chest pain or palpitations. PULMONARY: Denies hemoptysis, denies night sweats. GASTROINTESTINAL: Denies hematemesis, hematochezia, or melena. Does admit persistent nausea and vomiting as noted above with epigastric pain, now migratory pain. GENITOURINARY: Denies dysuria. Admits decreased urine output with the recent symptoms. MUSCULOSKELETAL: No acute changes. ENDOCRINE: Denies polyuria, polydipsia, or polyphagia. MEDICATIONS: Per med rec. Oral medications held with acute symptoms. PHYSICAL EXAMINATION: VITAL SIGNS: Temp 98.7, blood pressure 114/72, heart rate 88, respirations 20 and O2 sats 100%. GENERAL: Alert and oriented, in moderate distress secondary to above. HEENT: Normocephalic and atraumatic. Eyes: Pupils are equal, round, reactive to light and accommodation. Extraocular muscles are intact. Conjunctivae not injected. Ears: Canals patent. TMs are intact. Nose: Nares patent without drainage. Throat: No erythema, no exudates. NECK: Supple. No lymphadenopathy and no JVD. HEART: Regular rate and rhythm. LUNGS: Clear to auscultation bilaterally. Breathing is nonlabored. ABDOMEN: Soft, mild epigastric tenderness, no rebound or guarding. Also, bilateral lower abdominal tenderness. Again, no rebound or guarding. No palpable masses. EXTREMITIES: Present times 4. Trace edema. NEUROLOGIC: No focal deficits. SKIN: Warm and dry. No rash. LABORATORY DATA: CBC: White count 6.2, hemoglobin 13.6, hematocrit 39.9 and platelets 239. Chemistry shows sodium of 143, potassium 3.6, chloride 107, bicarbonate 19.4. BUN 3 and creatinine 0.6. Urinalysis: Yellow, cloudy, specific gravity 1.025, trace protein, large ketones, 1+ blood, few bacteria. Lipase elevated at 455. Amylase normal at 60, alkaline phosphatase 45. HISTORY AND PHYSICAL [id number] RIMA LARSON IMAGING: CT abdomen and pelvis without multiple nonobstructive renal calculi in the proximal left ureter, no hydronephrosis, no significant change from prior CT, findings consistent with a gastric sleeve procedure without evidence of any adjacent fluid collection, prior cholecystectomy, nonspecific low attenuation lesion in the right hepatic lobe, complex left adnexal cystic lesion, stable from previous CT. ASSESSMENT AND PLAN: Acute pancreatitis, mild epigastric pain, adnexal pain, pelvic lower abdominal pain, intractable nausea and vomiting, and renal calculi. IV hydration, accurate I's and O's, n.p.o., pain management, MRCP. We will workup adnexal mass as outpatient. Discussed with the patient and family. Monitor electrolytes and supportive care. TRANSINT:[id number] Voice Confirmation ID: [id number] DOCUMENT ID: [id number] ALYSA LAROSE DO at 0750 CC: [id number] DICTATION DATE: 12/22/161849 PERIPHERAL EDP EQUIPMENT OPERATOR: 12/22/162225 ADM IN [place] [id number] [place] [address]
[2016-12-23 08:25] VITALS: BP 103/60
--- NOTE | 2016-12-23 12:15 | NUR ---
NOT TOLERATING PO K WITH APPLEJUICE.NAUSEA, BUT NO VOMITING AT THIS TIME.
[2016-12-23 12:21] VITALS: BP 103/69
[2016-12-23 13:21] VITALS: Ht 170.2 cm; Wt 109.8 kg
--- NOTE | 2016-12-23 14:01 | NUR ---
REFUSES IV K RIDERS
--- NOTE | 2016-12-23 14:38 | NUR ---
CALL TO VASCULAR NURSE [facility] FOR SECOND IV OR MIDLINE
[2016-12-23 16:08] VITALS: BP 134/77
--- NOTE | 2016-12-23 16:30 | NUR ---
PAGE TO [facility] VASCULAR NURSE FOR IV SITE.
--- NOTE | 2016-12-23 16:34 | NUR ---
Patient Name: RIMA LARSON Admission Status: ER Accout number: [id number] Admission Date: 12-22-2016 : 1970 Admission Diagnosis:ACUTE PANCREATITIS WITHOUT NECROSIS OR INFECTION, UNSP Attending: SHERICE Current LOS: 1 Anticipated DC Date: 12-26-2016 Planned Disposition: Home Primary Insurance: [employer] [facility] Discharge Planning Comments: CM MET WITH PATIENT WITH D/C NEEDS AND PLANS. PATIENT STATED SHE LIVES WITH HER SPOUSE (KATHI) AND HE WILL DRIVE HER HOME AT DISCHARGE. PATIENT STATED THERE IS 2 STEPS TO ENTER HOME AND NO STAIRS INSIDE. PATIENT STATED SHE IS INDEPENDENT WITH HER CARE AND HAS A C-PAP AND WALKER AT HOME. PATIENT STATED HER PCP IS DR. LAROSE AND PHARMACY IS [facility] ON [address]. PATIENT DOES NOT THINK SHE WILL NEED HOME HEALTH AT THIS TIME. CM WILL CONTINUE TO FOLLOW PATIENT WITH D/C NEEDS AND PLANS. PCP DR. LACHELLE MCMAHAN [facility] [address] [phone] KATHI (SPOUSE) [phone] Track Fitter: Serene Funes Is the patient Alert and Oriented? Yes 0 * How many steps to enter\exit or inside your home? 2 0 * PCP DR. LAROSE 0 * Pharmacy [facility] [address] * Preadmission Environment Home with Family 0 * ADLs Independent 0 * Equipment CPAP Walker 0 * List name and contact numbers for known caregivers / representatives who currently or will assist patient after discharge: KATHI [phone] * Community resources currently utilized None 0 * Additional services required to return to the preadmission environment? Yes 0 * Can the patient safely return to the preadmission environment? Yes 0 * Has this patient been hospitalized within the prior 30 days at any hospital? No 0 Grand Total: 0
--- NOTE | 2016-12-23 18:52 | NUR ---
REMAINS WITHOUT NEEDS,WITHOUT DISTRESS. AT BEDSIDE.CONT PLAN OF CARE
--- NOTE | 2016-12-23 18:57 | NUR ---
2ND IV SITED TO RIGHT FOREARM X1 STICK USING ASEPTIC TECH 24G.
--- NOTE | 2016-12-23 19:40 | NUR ---
PT COMPLAINS OF SEVERE LEFT FLANK PAIN, DATA PROCESSING AUDITOR PHYSICIAN PAGED, N/V PT HAS ZOFRAN GTT, NO OTHER NEEDS AT THIS TIME, BED LOWEST POSITION, CALL LIGHT IN REACH, WILL CONTINUE TO MONITOR
[2016-12-23 20:00] VITALS: BP 131/81
[2016-12-24] VITALS: BP 128/71
--- NOTE | 2016-12-24 02:21 | NUR ---
SLEEPING, BREATHING EVEN UNLABORED, WILL CONTINUE TO MONITOR
[2016-12-24 04:00] VITALS: BP 148/83
[2016-12-24 05:26] LABS: BASOPHILS 0.3 % (0-2); EOSINOPHILS 0.3 % (0-7); HEMATOCRIT 36.6 % (36.0-48.0); HEMOGLOBIN 12.6 g/dL (12-16); IMMATURE GRANULOCYTES 0.2 % (0-5); LYMPHOCYTES 15.5 % (15-50); MCH 29.6 pg (26.0-34.0); MCHC 34.4 g/dL (31.0-37.0); MCV 85.9 fL (80.0-100.0); MEAN PLATELET VOLUME 10.8 fL (7.4-10.4); MONOCYTES 10.7 % (2-11); PLATELET COUNT 238 10x3/uL (130-400); RBC 4.26 10x6/uL (4.00-5.40); RDW 15.8 % (11.5-14.5)
[2016-12-24 05:34] LABS: CALC OSMOLALITY 278 mosm/kg (275-300); CALCIUM 8.3 mg/dL (8.5-10.1); CARBON DIOXIDE 27.2 mmol/L (21.0-32.0); CHLORIDE - SERUM 110 mmol/L (98-107); CREATININE - SERUM 0.5 mg/dL (0.6-1.3); GLUCOSE 140 mg/dL (74-106); LIPASE 292 U/L (73-393); MAGNESIUM - SERUM 1.4 mg/dL (1.8-2.4); PHOSPHOROUS 2.5 mg/dL (2.5-4.9); POTASSIUM - SERUM 3.6 mmol/L (3.5-5.1); SODIUM 141 mmol/L (136-145); WBC 6.7 10x3/uL (4.8-10.8); eGFR NON AFRICAN AMERICAN > 90 mL/min (90-120)
[2016-12-24 05:35] LABS: AMYLASE - SERUM 35 U/L (25-115); UREA NITROGEN 1 mg/dL (7-18)
--- NOTE | 2016-12-24 08:00 | NUR ---
ASSESSMENT COMPLETE. IV L FA PATENT. D5LR WITH 40 KCL INFUSING AT 125 CC/HR AND PROTONIX AT 10 CC/HR VIA PUMP. IV TO R FA PATENT. ZOFRAN INFUSING AT 4.7 CC/HR VIA PUMP. COMPLAINING OF L FLANK PAIN. FAMILY AT BEDSIDE.
[2016-12-24 08:02] VITALS: BP 148/57
--- NOTE | 2016-12-24 10:49 | NUR ---
RESTING QUIETLY AT THIS TIME. DENIES ANY NEEDS.
[2016-12-24 11:49] VITALS: BP 152/91
--- NOTE | 2016-12-24 12:35 | NUR ---
SURGICAL CONSENTS SIGNED. FAMILY AT BEDSIDE.
--- NOTE | 2016-12-24 16:04 | NUR ---
OFF FLOOR TO OR VIA BED.
[2016-12-24 18:00] VITALS: BP 117/65
--- NOTE | 2016-12-24 18:00 | NUR ---
RECIEVED BACK TO ROOM FROM RECOVERY ROOM. VSS. FEELING NEED TO VOID. ASSISTED UP TO BATHROOM. AT BEDSIDE.
[2016-12-24 20:00] VITALS: BP 134/82
--- NOTE | 2016-12-24 20:30 | NUR ---
DILAUDID DIRECTOR OF DIGITAL TECHNOLOGY INITIATED, DENIES NEEDS, BED LOWEST POSITION, CALL LIGHT IN REACH, WILL CONTINUE TO MONITOR
[2016-12-25] VITALS: BP 128/80
--- NOTE | 2016-12-25 01:55 | NUR ---
PT CONCERNED ABOUT BLOOD WHEN URINATING, PASSING A COUPLE SMALL CLOTS WHEN URINATING, BLOOD IS MINIMAL
--- NOTE | 2016-12-25 02:04 | NUR ---
RESTING WITH EYES CLOSED. CPAP ON. RR EVEN U/L. FAMILY MEMBER PRESENT IN ROOM.
[2016-12-25 04:00] VITALS: BP 133/77
[2016-12-25 04:59] LABS: BASOPHILS 0.2 % (0-2); EOSINOPHILS 0.2 % (0-7); HEMATOCRIT 38.2 % (36.0-48.0); HEMOGLOBIN 13.2 g/dL (12-16); IMMATURE GRANULOCYTES 0.2 % (0-5); LYMPHOCYTES 4.7 % (15-50); MCH 29.8 pg (26.0-34.0); MCHC 34.6 g/dL (31.0-37.0); MCV 86.2 fL (80.0-100.0); MONOCYTES 5.9 % (2-11); NEUTROPHILS 88.8 % (40-80); PLATELET COUNT 242 10x3/uL (130-400); RBC 4.43 10x6/uL (4.00-5.40); RDW 15.8 % (11.5-14.5); WBC 5.8 10x3/uL (4.8-10.8)
[2016-12-25 05:20] LABS: ALBUMIN 2.5 g/dL (3.4-5.0); ALKALINE PHOSPHATASE 39 U/L (46-116); ALT (SGPT) 21 U/L (10-68); BILIRUBIN - TOTAL 0.64 mg/dL (0.2-1.3); CALC OSMOLALITY 278 mosm/kg (275-300); CALCIUM 8.6 mg/dL (8.5-10.1); CHLORIDE - SERUM 107 mmol/L (98-107); CREATININE - SERUM 0.6 mg/dL (0.6-1.3); GLUCOSE 170 mg/dL (74-106); SODIUM 140 mmol/L (136-145); UREA NITROGEN 1 mg/dL (7-18); eGFR NON AFRICAN AMERICAN > 90 mL/min (90-120)
[2016-12-25 07:10] LABS: MAGNESIUM - SERUM 1.6 mg/dL (1.8-2.4)
[2016-12-25 08:02] VITALS: BP 117/64
--- NOTE | 2016-12-25 08:02 | NUR ---
PATIENT RESTING IN BED. PATIENT IS AWAKE, ALERT, AND ORIENTED X4. PATIENT RATES HER PAIN LEVEL A "7" ON A 0-10 SCALE. PATIENT REPORTS PAIN IN HER BACK. NO COMPLAINTS OF NAUSEA OR VOMITING. PATIENT DENIES ANY NEEDS AT PRESENT TIME. CALL LIGHT IN PATIENT'S REACH. WILL MONITOR PATIENT.
--- NOTE | 2016-12-25 09:31 | OP ---
PATIENT NAME: RIMA LARSON MEDICAL RECORD: [id number] :[birth year] LOCATION:[id number] ADMISSION DATE:12/22/16 SURGEON: ZAC GARCIA MD DATE OF OPERATION: 12/24/2016 SURGEON: Zac Garcia MD ANESTHESIA: Kaleigh Wills CRNA. PREOPERATIVE DIAGNOSIS: Left proximal ureteral 3-mm stone. POSTOPERATIVE DIAGNOSIS: No stone seen. PROCEDURES: Cystoscopy, left ureteroscopy, left ureteral stent insertion, 4.8-Citizen [place] x 26 cm with string attached. SPECIMENS: None. ESTIMATED BLOOD LOSS: None. CLINICAL HISTORY: This is a 46-year-old female, who recently had gastric sleeve surgery for weight reduction. She came into the Emergency Room with acute abdominal pain, nausea and vomiting. She had pain in the left flank area. 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 Her family physician admitted her with a presumptive diagnosis of pancreatitis. However, her lipase and amylase levels are not elevated. A CT scan shows punctate bilateral renal stones, which are nonobstructive. There is a possible left proximal ureteral 3-mm stone seen on the CT, but there is no hydronephrosis. As we cannot fully account for the cause of her pain, we are going to go ahead with a left ureteroscopy and stone extraction. She was given Ancef 2 grams IV stone setter metal optical frames to the OR. DESCRIPTION OF PROCEDURE: The patient was given induction of general anesthesia. She was placed into dorsal lithotomy position and prepped and draped. A 21-Citizen [place] cystoscope with 30-degree lens was used for visualization. The bladder shows diffuse inflammation. No bladder tumors were seen. She has single ureteral orifices on each side. The guidewire was placed into the left ureteral orifice and pushed up to the renal pelvis. I did not see any stones along the course of the wire on fluoroscopy. The ureteral orifice was dilated using a 6 mm x 9 cm long esophageal dilation balloon. We had to use an esophageal dilation balloon as we did not have any more ureteral dilation balloons in the hospital. This was inflated with 2 atmospheres of pressure for a few seconds and deflated completely. The semi-rigid ureteroscope was then introduced. The entire ureter from the ureteral orifice up to the UP junction was visualized and no stones were seen. No areas of ureteral edema, which may have been the lodging place of the stone was seen. I believe what we are seeing on the CT scan is nearly an artifact. At this point, the scope was removed and over the wire, we inserted a 4.8-[place]izen [place] x 26 cm ureteral stent. The string on the distal end of stent is maintained. Once the stent was in correct position, the wire was entirely withdrawn and the distal end was pushed into the bladder using a pusher. The bladder was emptied through the cystoscope sheath and then the scope was removed. The string on the distal end of the stent was then taped to the suprapubic region with a small piece of Tegaderm. The patient will be brought back to the recovery room. She does have general surgery seeing her in consultation. I will keep her on a clear liquid diet, which is what she had OPERATIVE REPORT [id number] RIMA LARSON previously. TRANSINT:[id number] Voice Confirmation ID: [id number] DOCUMENT ID: [id number] ZAC GARCIA MD at 0931 CC: [id number] DICTATION DATE: 12/24/161752 CONVEYOR MAINTENANCE MECHANIC: 12/24/16 1714 ADM IN [facility] [address] [place] [address]
--- NOTE | 2016-12-25 11:44 | NUR ---
PATIENT TRANSFERRED VIA WHEELCHAIR TO RADIOLOGY FOR AN ULTRASOUND PELVIS WITH TRANSVAGINAL.
--- NOTE | 2016-12-25 12:25 | NUR ---
PATIENT RETURNED TO HER ROOM VIA WHEELCHAIR FROM RADIOLOGY.
[2016-12-25 14:08] VITALS: BP 127/71
[2016-12-25 15:55] VITALS: BP 122/72
--- NOTE | 2016-12-25 17:37 | NUR ---
PATIENT TRANSFERRED VIA WHEELCHAIR TO RADIOLOGY FOR A CT ABDOMEN AND PELVIS.
[2016-12-25 20:00] VITALS: BP 128/66
--- NOTE | 2016-12-25 20:00 | NUR ---
ASSESSMENT PER FLOWSHEET. IV RESITED TO RT WRIST PER VIV GONZALEZ. IV FUILDS RESUMED OF D5LR W/40MEQ KCL INFUSING AT 125CC'S/HRSITE CLEAR FAMILY LAW ATTORNEY OF DILAUDID IN USE WITH SETTINGS AT 0.2MG Q10MIN W/4MG Q4H L/O. ZOFRAN GTT AT 4.7CC'S/HR. SPOUSE AT BEDSIDE.
--- NOTE | 2016-12-25 21:00 | NUR ---
MEDS GIVEN PER MAR.
--- NOTE | 2016-12-25 22:15 | NUR ---
WAS CALLED INTO ROOM TO CHECK IV PT STATES IT WAS HURTING. CHECKED FOR PATENCY GOOD BLOOD FLOW NOTED PT REQUESTED IV RATE BE SLOWED DOWN DECREASED IV RATE TO 75 CC'S/HR
--- NOTE | 2016-12-26 | NUR ---
PT STATES PAIN HAS GONE AWAY IN IV SITE RESTING QUIETLY AT THIS TIME.
[2016-12-26 04:00] VITALS: BP 121/68
[2016-12-26 05:22] LABS: BASOPHILS 0.3 % (0-2); HEMATOCRIT 37.6 % (36.0-48.0); HEMOGLOBIN 12.6 g/dL (12-16); IMMATURE GRANULOCYTES 0.3 % (0-5); LYMPHOCYTES 28.9 % (15-50); MCH 29.1 pg (26.0-34.0); MCHC 33.5 g/dL (31.0-37.0); MCV 86.8 fL (80.0-100.0); MEAN PLATELET VOLUME 10.8 fL (7.4-10.4); MONOCYTES 17.7 % (2-11); NEUTROPHILS 51.8 % (40-80); PLATELET COUNT 221 10x3/uL (130-400); RBC 4.33 10x6/uL (4.00-5.40); RDW 15.9 % (11.5-14.5)
[2016-12-26 05:23] LABS: WBC 3.8 10x3/uL (4.8-10.8)
--- NOTE | 2016-12-26 06:00 | NUR ---
STENT REMOVED ORDERED. UP TO BR VOIDS WELL.
[2016-12-26 06:12] LABS: ALBUMIN 2.5 g/dL (3.4-5.0); ALKALINE PHOSPHATASE 39 U/L (46-116); ALT (SGPT) 19 U/L (10-68); AMYLASE - SERUM 76 U/L (25-115); BILIRUBIN - TOTAL 0.65 mg/dL (0.2-1.3); CALCIUM 8.3 mg/dL (8.5-10.1); CARBON DIOXIDE 30.8 mmol/L (21.0-32.0); CHLORIDE - SERUM 107 mmol/L (98-107); CREATININE - SERUM 0.7 mg/dL (0.6-1.3); LIPASE 845 U/L (73-393); MAGNESIUM - SERUM 1.4 mg/dL (1.8-2.4); PHOSPHOROUS 2.6 mg/dL (2.5-4.9); POTASSIUM - SERUM 4.1 mmol/L (3.5-5.1); PROTEIN - SERUM 5.2 g/dL (6.4-8.2); SODIUM 143 mmol/L (136-145); eGFR NON AFRICAN AMERICAN > 90 mL/min (90-120)
[2016-12-26 06:14] LABS: CALC OSMOLALITY 281 mosm/kg (275-300); GLUCOSE 113 mg/dL (74-106); TROPONIN-I 0.016 ng/mL (0.000-0.060); UREA NITROGEN 2 mg/dL (7-18)
--- NOTE | 2016-12-26 08:10 | NUR ---
ASSESSMENT COMPLETE. IV TO R WRIST PATENT. COLD TYPE ARTIST DILAUDID 0.2-10-4 IN USE FOR PAIN CONTROL. CONTINUES TO COMPLAIN TO L FLANK PAIN. AT BEDSIDE.
[2016-12-26 08:12] VITALS: BP 138/81
--- NOTE | 2016-12-26 11:00 | NUR ---
NPO FOR EGD TODAY. AT BEDSIDE.
[2016-12-26 12:06] VITALS: BP 126/73
--- NOTE | 2016-12-26 14:10 | NUR ---
RETURNED TO ROOM FROM GI LAB VIA BED.
--- NOTE | 2016-12-26 14:30 | NUR ---
OD GRINDER OPERATOR MADIEAUDCAROLYN VAZQUEZ'Zeferino. OD GRINDER OPERATOR DEMEROL 10-10-200 SETUP FOR PAIN CONTROL.
[2016-12-26 16:43] VITALS: BP 112/69
--- NOTE | 2016-12-26 17:55 | NUR ---
VOIDED BLOOD TINGED URINE WITHOUT DIFFCULTY OR BURNING. STATES THAT SHE DIDN'T THINK THAT URINE HAD BEEN BLOODY BUT SHE HADN'T BEEN TURNING THE LIGHT IN THE BATHROOM. STATES SHE WILL TURN LIGHT ON NEXT VOID AND COMPARE. OFFERED TO NOTIFY DR GARCIA BUT DECLINED AT THIS TIME. BECAME NAUSEATED AND STARTED DRY HEAVING AFTER GETTING OOB TO BATHROOM. PHENERGAN GIVEN TO R HIP.
[2016-12-26 20:00] VITALS: BP 110/67
--- NOTE | 2016-12-26 20:00 | NUR ---
ASSESSMENT PER FLOWSHEET. IV PATENT RT WRIST OF D5LR W/40MEQ KCL INFUSING AT 75CC'S/HR. DERRICK CAR OPERATOR OF DEMEROL IN USE WITH SETTINGS AT 10MG Q10MIN W/200MG Q4H L/O. SPOUSE AT BEDSIDE.
--- NOTE | 2016-12-26 22:00 | NUR ---
MEDS GIVEN PER MAR.
--- NOTE | 2016-12-27 | NUR ---
EYES CLOSED RESPIRATIONS WITH EASE AND UNLABORED. SPOUSE AT BEDSIDE.
--- NOTE | 2016-12-27 03:23 | NUR ---
EYES CLOSED RESPIRATIONS WITH EASE AND UNLABORED.
[2016-12-27 03:38] VITALS: BP 114/69
[2016-12-27 04:16] LABS: BASOPHILS 0 % (0-2); EOSINOPHILS 0.2 % (0-7); HEMATOCRIT 37.9 % (36.0-48.0); HEMOGLOBIN 12.9 g/dL (12-16); IMMATURE GRANULOCYTES 0.2 % (0-5); LYMPHOCYTES 17.4 % (15-50); MCH 29.6 pg (26.0-34.0); MCV 86.9 fL (80.0-100.0); MEAN PLATELET VOLUME 10.6 fL (7.4-10.4); NEUTROPHILS 67.2 % (40-80); PLATELET COUNT 228 10x3/uL (130-400); RBC 4.36 10x6/uL (4.00-5.40); RDW 15.6 % (11.5-14.5); WBC 4.6 10x3/uL (4.8-10.8)
[2016-12-27 04:33] LABS: ALBUMIN 2.5 g/dL (3.4-5.0); ALKALINE PHOSPHATASE 42 U/L (46-116); BILIRUBIN - TOTAL 0.64 mg/dL (0.2-1.3); CALC OSMOLALITY 274 mosm/kg (275-300); CALCIUM 8.2 mg/dL (8.5-10.1); CARBON DIOXIDE 31.4 mmol/L (21.0-32.0); CHLORIDE - SERUM 104 mmol/L (98-107); CREATININE - SERUM 0.6 mg/dL (0.6-1.3); GLUCOSE 107 mg/dL (74-106); MAGNESIUM - SERUM 1.4 mg/dL (1.8-2.4); PHOSPHOROUS 3.1 mg/dL (2.5-4.9); POTASSIUM - SERUM 3.9 mmol/L (3.5-5.1); PROTEIN - SERUM 5.7 g/dL (6.4-8.2); SODIUM 140 mmol/L (136-145); UREA NITROGEN 2 mg/dL (7-18); eGFR NON AFRICAN AMERICAN > 90 mL/min (90-120)
[2016-12-27 04:35] LABS: ALT (SGPT) 24 U/L (10-68)
--- NOTE | 2016-12-27 07:45 | NUR ---
ASSESSMENT PER FLOW SHEET.PT WITHIUT DISTRESS,BUT COMPLAINS OF SOME NAUSEA THIS AM.DR. HERNANDEZ TO SEE PT.CALL LIGHT IN REACH
[2016-12-27 08:22] VITALS: BP 143/93
[2016-12-27 12:02] VITALS: BP 108/67
[2016-12-27 16:26] VITALS: BP 119/74
[2016-12-27 20:00] VITALS: BP 134/65
--- NOTE | 2016-12-27 20:00 | NUR ---
ASSESSMENT PER FLOWSHEET. IV PATENT RT UPPER ARM MIDLINE SITE OF D5LR W/40MEQ KCL INFUSING AT 75CC'S/HER SITE CLEAR. HOSPITALITY HOUSEKEEPER OF DEMEROL IN USE WITH SETTINGS AT 10MG Q10MIN W/4MG Q4H L/O.
--- NOTE | 2016-12-27 22:00 | NUR ---
MEDS GIVEN PER MAR. FAMILY IN ROOM
[2016-12-28] VITALS: BP 133/79
--- NOTE | 2016-12-28 | NUR ---
EYES CLOSED RESPIRATIONS WITH EASE AND UNLABORED.PT WEARING CPAP.
--- NOTE | 2016-12-28 02:00 | NUR ---
RESTING QUIETLY NO VOICED COMPLAINTS SPOUSE AT BEDSIDE.
--- NOTE | 2016-12-28 03:30 | NUR ---
MEDS GIVEN PER MAR.
[2016-12-28 04:00] VITALS: BP 114/78
[2016-12-28 05:00] LABS: BASOPHILS 0.2 % (0-2); EOSINOPHILS 0.4 % (0-7); HEMATOCRIT 40.2 % (36.0-48.0); HEMOGLOBIN 13.6 g/dL (12-16); IMMATURE GRANULOCYTES 0.6 % (0-5); LYMPHOCYTES 21.4 % (15-50); MCH 29.6 pg (26.0-34.0); MCHC 33.8 g/dL (31.0-37.0); MCV 87.4 fL (80.0-100.0); MEAN PLATELET VOLUME 10.9 fL (7.4-10.4); MONOCYTES 15.4 % (2-11); PLATELET COUNT 233 10x3/uL (130-400); RDW 15.8 % (11.5-14.5); WBC 5.2 10x3/uL (4.8-10.8)
[2016-12-28 05:19] LABS: ALBUMIN 2.7 g/dL (3.4-5.0); ALKALINE PHOSPHATASE 43 U/L (46-116); ALT (SGPT) 25 U/L (10-68); CALC OSMOLALITY 276 mosm/kg (275-300); CALCIUM 8.5 mg/dL (8.5-10.1); CHLORIDE - SERUM 103 mmol/L (98-107); CREATININE - SERUM 0.7 mg/dL (0.6-1.3); GLUCOSE 105 mg/dL (74-106); POTASSIUM - SERUM 3.5 mmol/L (3.5-5.1); PROTEIN - SERUM 6.1 g/dL (6.4-8.2); SODIUM 141 mmol/L (136-145); UREA NITROGEN 2 mg/dL (7-18); eGFR NON AFRICAN AMERICAN > 90 mL/min (90-120)
--- NOTE | 2016-12-28 06:30 | NUR ---
NO CHANGES IN ASSESSMENT.
--- NOTE | 2016-12-28 07:35 | NUR ---
ASSESSMENT PER FLOW SHEET.PT WITHOUT DISTRESS.FELLING BETTER THIS AM.DENIES NEEDS.CALL LIGHT IN REACH.
[2016-12-28 07:55] VITALS: BP 119/64
--- NOTE | 2016-12-28 10:51 | NUR ---
NUTRITION MONITORING & EVAL CHART REVIEWED. FULL LIQUID DIET BUT REPORTED NAUSEA. NOW ASSESSED WITH POTENTIAL FOR INADEQUATE ENERGY INTAKE R/T DX, PMH. WILL CONTINUE TO PROVIDE FULL LIQUIDS, MONITOR PT PROGRESS. RD FOLLOWING
[2016-12-28 12:00] VITALS: BP 123/73
[2016-12-28 15:53] VITALS: BP 130/84
--- NOTE | 2016-12-28 16:30 | NUR ---
PT STATES SHE WILL AMBULATE AFTER BRINGS HER ROBE FROM HOME.HAS REMAINED WITHOUT EMESIS WITH ONE EPISODE OF DRY HEAVES AFTER AM MEDS. SHE HAD NO PO INTAKE TODAY EXCEPT A FEW SIPS.CONT PLAN OF CARE
[2016-12-28 20:00] VITALS: BP 149/93
--- NOTE | 2016-12-28 20:00 | NUR ---
ASSESSMENT PER FLOWSHEET. IV PATENT RT UPPER ARM MIDLINE CATHETER OF D5LR W/40MEQKCL INFUSING AT 30CC'S/HR SITE CLEAR EDUCATION MANAGERS OF DEMEROL IN USE WITH SETTINGS AT 10MG Q10MIN W/200MG Q4H L/O. NO NAUSEA OR VOMITING. SPOUSE IN ROOM PT REQUESTING A SHOWER IV PLACED ON HOLD. SHOWER SELF CARE DONE. RESUMED IV AFTER SHOWER.
--- NOTE | 2016-12-28 21:00 | NUR ---
PT DECLINED TO WALK IN HALLS. STATES TOO TIRED AFTER HER SHOWER.
--- NOTE | 2016-12-28 22:00 | NUR ---
MEDS PER MAR.
[2016-12-29] VITALS: BP 116/75
--- NOTE | 2016-12-29 | NUR ---
EYES CLOSED RESPIRATIONS WITH EASE AND UNLABORED.
--- NOTE | 2016-12-29 01:21 | NUR ---
MEDS PER MAR.
--- NOTE | 2016-12-29 03:30 | NUR ---
AWAKE UP AD GUNNER TO BR VOIDS WELL PINK TINGED URINE NOTED.
[2016-12-29 04:00] VITALS: BP 140/99
--- NOTE | 2016-12-29 04:26 | NUR ---
RESTING QUIETLY. SPOUSE AT BEDSIDE.
[2016-12-29 05:53] LABS: ALBUMIN 2.8 g/dL (3.4-5.0); ALKALINE PHOSPHATASE 49 U/L (46-116); ALT (SGPT) 26 U/L (10-68); BILIRUBIN - TOTAL 0.75 mg/dL (0.2-1.3); CALC OSMOLALITY 275 mosm/kg (275-300); CALCIUM 8.5 mg/dL (8.5-10.1); CARBON DIOXIDE 32.6 mmol/L (21.0-32.0); CHLORIDE - SERUM 102 mmol/L (98-107); CREATININE - SERUM 0.7 mg/dL (0.6-1.3); GLUCOSE 98 mg/dL (74-106); LIPASE 1262 U/L (73-393); MAGNESIUM - SERUM 1.7 mg/dL (1.8-2.4); PHOSPHOROUS 3.7 mg/dL (2.5-4.9); POTASSIUM - SERUM 3.4 mmol/L (3.5-5.1); PROTEIN - SERUM 6.3 g/dL (6.4-8.2); SODIUM 140 mmol/L (136-145); eGFR NON AFRICAN AMERICAN > 90 mL/min (90-120)
[2016-12-29 05:54] LABS: UREA NITROGEN 4 mg/dL (7-18)
--- NOTE | 2016-12-29 07:00 | NUR ---
REPORT RECEIVED FROM PROCUREMENT PROFESSIONAL NURSE. CALL LIGHT IN REACH.
--- NOTE | 2016-12-29 07:33 | NUR ---
ASSESSMENT COMPLETED. PROTONIX IVP AND 2ND BAG OF KCL INITIATED. REFUSES SCDs. CALL LIGHT IN REACH. WILL CONTINUE WITH PLAN OF CARE.
--- NOTE | 2016-12-29 07:35 | NUR ---
AWAKE AND ALERT WITH AT BEDSIDE. RESPIRATIONS EVEN AND NON LABORED. RIGHT UPPER ARM MIDLINE PATENT WITH DRESSING INTACT AND PRESCRIBED FLUIDS INFUSING. SNOUT PULLER IN USE FOR PAIN. NO FURTHER NEEDS VOICED AT THIS TIME. CALL LIGHT IN REACH, WILL CONTINUE WITH PLAN OF CARE.
--- NOTE | 2016-12-29 07:49 | NUR ---
PATIENT IN BED WITH IV INTACT. EYES CLOSED RESTING QUIETLY. POTASSIUM COMPLETE. NOTIFIED LONG SODA ROOM OPERATOR. FAMILY AT BEDSIDE. CALL LIGHT WITHIN REACH.
[2016-12-29 08:35] VITALS: BP 124/78
--- NOTE | 2016-12-29 09:50 | NUR ---
OK WITH DR. BOYER FOR CT SCAN BUT PATIENT CANNOT HAVE AN NGT. HX OF GASTRIC SLEEVE.
--- NOTE | 2016-12-29 09:56 | NUR ---
PROMETHAZINE IM PER CARLOS BELLO, SO THAT PATIENT CAN TRY TO DRINK HER CONTRAST WITHOUT ANY NAUSEA OR VOMITING.
--- NOTE | 2016-12-29 10:25 | NUR ---
SPOKE WITH DR. BARBOSA. STATES IT IS OK TO DO CT SCAN. OTHER ORDERS ALSO RECEIVED AT THIS TIME.
--- NOTE | 2016-12-29 11:20 | NUR ---
SPOKE WITH DR. BOYER. NO NEED FOR A CENTRAL LINE AT THIS TIME. PATIENT HAS MIDLINE THAT CAN BE USED FOR PARENTERAL NUTRITION.
--- NOTE | 2016-12-29 11:22 | NUR ---
SPOKE WITH DR. BARBOSA. STATES IT IS OK TO DO CT SCAN. OTHER ORDERS ALSO RECEIVED AT THIS TIME.
[2016-12-29 12:30] VITALS: BP 134/88
--- NOTE | 2016-12-29 13:56 | NUR ---
TO CT VIA WC.
--- NOTE | 2016-12-29 14:11 | NUR ---
BACK IN ROOM AT THIS TIME. WILL START NEW MEDS WHEN PATIENT IS OUT OF THE BR.
--- NOTE | 2016-12-29 14:30 | NUR ---
PROCALAMINE INITIATED PER ORDER. ALSO STARTED IV THIAMINE PER ORDER. 5TH BAG OF KCL INITIATED. EXPLAINED TO PATIENT AND HER ABOUT ALL NEW ORDERS. BOTH VERBALIZED UNDERSTANDING.
--- NOTE | 2016-12-29 14:31 | NUR ---
[facility] [place] [place] PLACED IN FOR MEASUREMENT OF URINE.
--- NOTE | 2016-12-29 15:45 | NUR ---
DULCOLAX SUPPOSITORY PER ORDER.
[2016-12-29 15:47] VITALS: BP 140/89
--- NOTE | 2016-12-29 16:25 | NUR ---
HAD LIQUID BROWN BOWEL MOVEMENT WHICH DR. BOYER NOTED.
--- NOTE | 2016-12-29 18:07 | NUR ---
IV RATES CHANGED PER ORDER. MYLICON DROPS PER ORDER. NO CHANGES IN INTIIAL ASSESSMENT. CALL LIGHT IN REACH. STILL HAS SCDs OFF. WILL CONTINUE WITH PLAN OF CARE.
--- NOTE | 2016-12-29 19:15 | NUR ---
BEDSIDE REPORT RECEIVED AND CARE OF PT ASSUMED. PT LYING IN LOW SANCHEZ'S POSITION WATCHING TV. RIGHT MIDLINE PATENT WITH NS INFUSING AT 100 ML / HR, AND PROCALAMINE INFUSING AT 75 ML / HR. REFRIGERATION SYSTEMS INSTALLER WITH DEMERAL IN USE FOR PAIN CONTROL WITH SETTINGS OF 25/15/200 AND CONTROLLING PAIN WELL PER PT. WILL MONITOR CLOSLEY FOR NEEDS.
[2016-12-29 20:00] VITALS: BP 143/95
--- NOTE | 2016-12-29 21:58 | NUR ---
HS MEDICATIONS GIVEN WITH A SIP OF WATER. WILL CONTINUE TO MONITOR FOR NEEDS.
[2016-12-30] VITALS: BP 137/94
--- NOTE | 2016-12-30 00:30 | NUR ---
PT RESTING IN SUPINE POSITION WITH EYES CLOSED AND UNLABORED BREATHING. IS AT BEDSIDE. SIDE RAILS UP X2 FOR SAFETY.
[2016-12-30 04:00] VITALS: BP 152/84
[2016-12-30 04:25] LABS: BASOPHILS 0.3 % (0-2); HEMATOCRIT 39.6 % (36.0-48.0); HEMOGLOBIN 13.4 g/dL (12-16); IMMATURE GRANULOCYTES 0.5 % (0-5); MCH 29.7 pg (26.0-34.0); MCHC 33.8 g/dL (31.0-37.0); MCV 87.8 fL (80.0-100.0); MEAN PLATELET VOLUME 10.6 fL (7.4-10.4); NEUTROPHILS 52.2 % (40-80); PLATELET COUNT 251 10x3/uL (130-400); RBC 4.51 10x6/uL (4.00-5.40); RDW 15.6 % (11.5-14.5); WBC 6.5 10x3/uL (4.8-10.8)
[2016-12-30 04:44] LABS: ALBUMIN 2.6 g/dL (3.4-5.0); ALKALINE PHOSPHATASE 50 U/L (46-116); ALT (SGPT) 25 U/L (10-68); AMYLASE - SERUM 122 U/L (25-115); BILIRUBIN - DIRECT 0.13 mg/dL (0.00-0.30); BILIRUBIN - INDIRECT 0.47 mg/dL (0.00-1.00); CALC OSMOLALITY 272 mosm/kg (275-300); CALCIUM 8.4 mg/dL (8.5-10.1); CARBON DIOXIDE 30.7 mmol/L (21.0-32.0); CHLORIDE - SERUM 101 mmol/L (98-107); CREATININE - SERUM 0.6 mg/dL (0.6-1.3); GLUCOSE 85 mg/dL (74-106); LIPASE 1291 U/L (73-393); MAGNESIUM - SERUM 1.9 mg/dL (1.8-2.4); PHOSPHOROUS 3.2 mg/dL (2.5-4.9); POTASSIUM - SERUM 3.8 mmol/L (3.5-5.1); PROTEIN - SERUM 6.2 g/dL (6.4-8.2); SODIUM 138 mmol/L (136-145); eGFR NON AFRICAN AMERICAN > 90 mL/min (90-120)
[2016-12-30 04:46] LABS: UREA NITROGEN 6 mg/dL (7-18)
--- NOTE | 2016-12-30 05:35 | NUR ---
AM LABS REPORTED WITH NO NEED FOR COVERAGE PER ELECTROLYTE PROTOCOL.
--- NOTE | 2016-12-30 07:24 | NUR ---
REPORT RECEIVED FROM DOMAIN ARCHITECT NURSE. CALL LIGHT IN REACH.
[2016-12-30 08:40] VITALS: BP 125/87
--- NOTE | 2016-12-30 09:04 | NUR ---
ASSESSMENT COMPLETED. DOES NOT WANT TO WEAR SCDs BUT PATIENT IS ALSO ON LOVENOX. CALL LIGHT IN REACH. WILL CONTINUE WITH PLAN OF CARE.
--- NOTE | 2016-12-30 10:47 | NUR ---
AM MEDS ADMINISTERED. CALL LIGHT IN REACH.
--- NOTE | 2016-12-30 12:15 | NUR ---
RESTING WITH EYES CLOSED. RESP EVEN AND UNLABORED. CALL LIGHT IN REACH.
[2016-12-30 12:48] VITALS: BP 110/68
--- NOTE | 2016-12-30 13:36 | NUR ---
THIAMINE IVPB PER ORDER. CALL LIGHT IN REACH.
--- NOTE | 2016-12-30 15:41 | NUR ---
NUTRITION MONITORING AND EVAL CHART REVIEWED. RECEIVED CONSULT TO START TPN. MAG AND PHOS ADDED TO AM LABS. NURSING MESSAGE TO DC PROCALAMINE WHEN TPN STARTS AND DECREASE IV FLUIDS TO 60 CC/HR. RD FOLLOWING
--- NOTE | 2016-12-30 15:50 | NUR ---
PT TAKEN TO PICC LINE PLACEMENT AT THIS TIME VIA WHEELCHAIR.
[2016-12-30 16:13] VITALS: BP 127/73
--- NOTE | 2016-12-30 16:56 | NUR ---
BACK IN ROOM. TPN AND LIPIDS INITIATED. PRIMARY IV FLUIDS DECREASED TO 60 CC/HR PER BATTERY MECHANIC. NO NEEDS VOICED. CALL LIGHT IN REACH.
--- NOTE | 2016-12-30 18:48 | NUR ---
CARAFATE PO. NO CHANGES IN INITIAL ASSESSMENT. CALL LIGHT IN REACH. WILL CONTINUE WITH PLAN OF CARE.
[2016-12-30 20:00] VITALS: BP 123/77
--- NOTE | 2016-12-30 22:52 | NUR ---
REC'D SITTING UP IN BED. ALERT AND ORIENTED X4. NO DISTRESS NOTED. DENIED PAIN AT THIS TIME. WILL ADMIN PM/AM MEDS PRESCRIBED. INSTRUCTED TO CALL IF NEEDED ANYTHING. VERBALIZED UNDERSTANDING. BED LOW, LOCKED, CALL LIGHT IN REACH. AT BEDSIDE. WILL CONT TO MONITOR.
--- NOTE | 2016-12-31 02:51 | NUR ---
RESTING WITHOUT NEEDS,WITHOUT DISTRESS. AT BEDSIDE
[2016-12-31 03:34] VITALS: BP 131/62
[2016-12-31 05:45] LABS: BASOPHILS 0.2 % (0-2); EOSINOPHILS 4.9 % (0-7); HEMOGLOBIN 12.2 g/dL (12-16); IMMATURE GRANULOCYTES 0.4 % (0-5); LYMPHOCYTES 32.6 % (15-50); MCH 29.7 pg (26.0-34.0); MCHC 33.9 g/dL (31.0-37.0); MCV 87.6 fL (80.0-100.0); MEAN PLATELET VOLUME 10.2 fL (7.4-10.4); MONOCYTES 14.9 % (2-11); PLATELET COUNT 207 10x3/uL (130-400); RBC 4.11 10x6/uL (4.00-5.40); RDW 15.8 % (11.5-14.5); WBC 5.3 10x3/uL (4.8-10.8)
[2016-12-31 06:16] LABS: ALBUMIN 2.3 g/dL (3.4-5.0); ALKALINE PHOSPHATASE 40 U/L (46-116); ALT (SGPT) 22 U/L (10-68); CALC OSMOLALITY 273 mosm/kg (275-300); CALCIUM 8.1 mg/dL (8.5-10.1); CHLORIDE - SERUM 104 mmol/L (98-107); CREATININE - SERUM 0.5 mg/dL (0.6-1.3); GLUCOSE 104 mg/dL (74-106); LIPASE 1150 U/L (73-393); POTASSIUM - SERUM 3.7 mmol/L (3.5-5.1); PROTEIN - SERUM 5.2 g/dL (6.4-8.2); SODIUM 138 mmol/L (136-145); UREA NITROGEN 6 mg/dL (7-18); eGFR NON AFRICAN AMERICAN > 90 mL/min (90-120)
[2016-12-31 06:22] LABS: AMYLASE - SERUM 88 U/L (25-115); PHOSPHOROUS 4.8 mg/dL (2.5-4.9)
--- NOTE | 2016-12-31 07:30 | NUR ---
SLEEPING AT THIS TIME WITH C-PAP ON. RESPIRATIONS EVEN AND NON LABORED. AT BEDSIDE. PICC LINE TO RIGHT UPPER ARM PATENT WITH DRESSING INTACT. PT REFUSES SCD'S. DENIES NEEDS AT THIS TIME. REMAINS NPO AND AREA COUNSELOR IN USE FOR PAIN CONTROL. CALL LIGHT IN REACH, WILL CONTINUE WITH PLAN OF CARE. SRX2 WITH BED IN LOWEST POSITION AND WHEELS LOCKED.
[2016-12-31 08:11] VITALS: BP 122/79
--- NOTE | 2016-12-31 08:35 | NUR ---
SCHEDULED MEDICATIONS ADMINISTERED AT THIS TIME PER ORDERS. PO MEDICATIONS ADMINISTERED WITH SMALL SIP OF WATER WITH NO STRAW. ASSESSMENT PERFORMED PER FLOWSHEET. DRESSING TO RIGHT ARM PICC LINE DATED 12/30/16 WITH DRESSING INTACT AND BIOPATCH IN PLACE. HOUSING DEVELOPMENT SPECIALIST IN USE FOR PAIN. DENIES FURTHER NEEDS AT THIS TIME. REMAINS AT BEDSIDE. WILL CONTINUE WITH PLAN OF CARE.
--- NOTE | 2016-12-31 09:35 | NUR ---
ASSESSMENT PER FLOW SHEET.PT WITHOUT DISTRESS.DENIES NAUSEA. PAIN 3/10 SCALE TO BACK,FACILITIES OPERATOR USE INSTRUCTED.RIGHT AC PICC PATENT WITH NS @ 60/HR AND TPN @ 40/HR ORDERED.REMAINS NPO EXCEPT MEDS ORDERED. AT BEDSIDE.CALL LIGHT USE INSTRUCTED.PT HAS AMBULATED IN HALLS X2 LAPS.MONITOR FOR NEEDS.
[2016-12-31 11:54] VITALS: BP 106/63
--- NOTE | 2016-12-31 14:27 | NUR ---
SCHEDULED MEDICATIONS ADMINISTERED AT THIS TIME. REMAINS AT BEDSIDE. TRAUMA DOCTOR IN USE FOR PAIN. PT DENIES NEEDS CURRENTLY. CALL LIGHT IN REACH, WILL CONTINUE WITH PLAN OF CARE.
[2016-12-31 16:32] VITALS: BP 109/75
[2016-12-31 20:00] VITALS: BP 113/65
[2017-01-01] VITALS: BP 124/70
--- NOTE | 2017-01-01 02:10 | NUR ---
SLEEPING AFTER WATCHING MOVIE WITH HER .RESTING WITHOUT SIGNS OF DISTRESS.CALL LIGHT IN REACH
[2017-01-01 05:08] LABS: BASOPHILS 0.3 % (0-2); EOSINOPHILS 9.2 % (0-7); HEMATOCRIT 36.5 % (36.0-48.0); HEMOGLOBIN 12.3 g/dL (12-16); IMMATURE GRANULOCYTES 0.3 % (0-5); LYMPHOCYTES 26.2 % (15-50); MCH 29.4 pg (26.0-34.0); MCHC 33.7 g/dL (31.0-37.0); MCV 87.1 fL (80.0-100.0); MEAN PLATELET VOLUME 10.2 fL (7.4-10.4); MONOCYTES 15.5 % (2-11); NEUTROPHILS 48.5 % (40-80); PLATELET COUNT 195 10x3/uL (130-400); RBC 4.19 10x6/uL (4.00-5.40); RDW 15.9 % (11.5-14.5); WBC 5.8 10x3/uL (4.8-10.8)
[2017-01-01 05:21] LABS: ALBUMIN 2.4 g/dL (3.4-5.0); ALKALINE PHOSPHATASE 43 U/L (46-116); ALT (SGPT) 27 U/L (10-68); BILIRUBIN - TOTAL 0.52 mg/dL (0.2-1.3); CALC OSMOLALITY 273 mosm/kg (275-300); CALCIUM 8.1 mg/dL (8.5-10.1); CARBON DIOXIDE 28.2 mmol/L (21.0-32.0); CHLORIDE - SERUM 105 mmol/L (98-107); CREATININE - SERUM 0.6 mg/dL (0.6-1.3); GLUCOSE 99 mg/dL (74-106); LIPASE 1211 U/L (73-393); MAGNESIUM - SERUM 2.1 mg/dL (1.8-2.4); PHOSPHOROUS 4.5 mg/dL (2.5-4.9); POTASSIUM - SERUM 4.1 mmol/L (3.5-5.1); PROTEIN - SERUM 5.7 g/dL (6.4-8.2); SODIUM 138 mmol/L (136-145); UREA NITROGEN 7 mg/dL (7-18); eGFR NON AFRICAN AMERICAN > 90 mL/min (90-120)
--- NOTE | 2017-01-01 07:35 | NUR ---
AWAKE AND ALERT AT THIS TIME. AT BEDSIDE. ASSESSMENT PERFORMED PER FLOWSHEET. RIGHT UPPER ARM PICC LINE PATENT. DECORATOR HAND IN USE FOR PAIN. PAIN 3/10 ABDOMINALLY AND PT DENIES NAUSEA. CALL LIGHT IN REACH, WILL CONTINUE WITH PLAN OF CARE.
[2017-01-01 08:15] VITALS: BP 114/70
--- NOTE | 2017-01-01 09:22 | NUR ---
SCHEDULED MEDICATIONS ADMINISTERED AT THIS TIME. PO MEDICATIONS HELD PT IS TO HAVE AN ABDOMINAL ULTRASOUND. COURTESY DRIVER IN USE FOR PAIN. AT BEDSIDE. CALL LIGHT IN REACH, WILL CONTINUE WITH PLAN OF CARE.
--- NOTE | 2017-01-01 11:00 | NUR ---
IN WHEELCHAIR WITH PUSHING PATIENT AROUND HOSPITAL FOR CHANGE OF SCENERY. LINENS CHANGED.
[2017-01-01 19:00] VITALS: BP 120/64
--- NOTE | 2017-01-01 19:15 | NUR ---
HAS AMBULATED IN HALLS MULTIPLE TIMES.SHE IS WITHOUT DISTRESS.PT IS TALKING AND SMILING TO STAFF WITH AT SIDE.BACK TO ROOM.ASSESSMENT PER FLOW SHEET.SHE DENIES NAY NAUSEA,VOMITING.PAIN 3/10 SCALE TO RIGHT ABDOMEN.DENIES NEEDS.CALL LIGHT IN REACH
[2017-01-02 00:37] VITALS: BP 91/51
--- NOTE | 2017-01-02 01:25 | NUR ---
PT RESTING,WITHOUT DISTRESS. AT BEDSIDE
[2017-01-02 04:00] VITALS: BP 110/64
[2017-01-02 05:12] LABS: CALC OSMOLALITY 275 mosm/kg (275-300); CALCIUM 8.2 mg/dL (8.5-10.1); CARBON DIOXIDE 27.7 mmol/L (21.0-32.0); CHLORIDE - SERUM 105 mmol/L (98-107); CREATININE - SERUM 0.6 mg/dL (0.6-1.3); GLUCOSE 94 mg/dL (74-106); LIPASE 1144 U/L (73-393); MAGNESIUM - SERUM 2.1 mg/dL (1.8-2.4); PHOSPHOROUS 4.2 mg/dL (2.5-4.9); POTASSIUM - SERUM 4.1 mmol/L (3.5-5.1); SODIUM 139 mmol/L (136-145); UREA NITROGEN 8 mg/dL (7-18); eGFR NON AFRICAN AMERICAN > 90 mL/min (90-120)
--- NOTE | 2017-01-02 07:25 | NUR ---
SLEEPING AT THIS TIME WITH RESPIRATIONS EVEN AND NON LABORED. HOME C-PAP IN USE. AT BEDSIDE. RIGHT UPPER ARM PICC LINE WITH DRESSING DATED 12/30/16. REFUSES SCD'S. CALL LIGHT IN REACH, WILL CONTINUE WITH PLAN OF CARE.
[2017-01-02 08:15] VITALS: BP 117/64
--- NOTE | 2017-01-02 09:23 | NUR ---
SCHEDULED MEDICATIONS ADMINISTERED AT THIS TIME. PICC LINE TO RIGHT UPPER ARM PATENT. C/O PAIN TO RIGHT ARM. NO SWELLING OR REDNESS PRESENT. DENIES NEEDS AT THIS TIME. RIVERS AND LAKES LEVERMAN IN USE FOR PAIN. CALL LIGHT IN REACH, WILL CONTINUE WITH PLAN OF CARE.
[2017-01-02 11:34] VITALS: BP 118/69
--- NOTE | 2017-01-02 12:45 | NUR ---
AMBULATING IN HALLWAY AT THIS TIME. DENIES NEEDS AT THIS TIME. WILL CONTINUE WITH PLAN OF CARE.
[2017-01-02 16:01] VITALS: BP 123/79
[2017-01-02 19:00] VITALS: BP 120/87
--- NOTE | 2017-01-02 20:00 | NUR ---
ASESSMENT PER FLOWSHEET. AMBULATING IN HALLWAY. IV PATENT RT UPPER ARM PICC LINE WITH TPN AT 40CC'S/HR NS AT 10CC'S /HR. SHAMPOO PERSON OF DEMEROL IN USE WITH SETTINGS AT 25MG Q15MIN W/200MG Q4H L/O.
--- NOTE | 2017-01-02 21:15 | NUR ---
MEDS GIVEN PER JUL. SHOWER TAKEN IN BR SELF CARE WITH LINENS CHANGED.
[2017-01-03] VITALS: BP 111/63
--- NOTE | 2017-01-03 | NUR ---
AWAKE SPOUSE HERE PT WALKING IN HALLWAY WITH SPOUSE.
--- NOTE | 2017-01-03 02:51 | NUR ---
EYES CLOSED RESPIRATIONS WITH EASE AND UNLABORED.
[2017-01-03 04:00] VITALS: BP 102/54
[2017-01-03 05:29] LABS: BASOPHILS 0.4 % (0-2); EOSINOPHILS 6.2 % (0-7); HEMATOCRIT 34.8 % (36.0-48.0); HEMOGLOBIN 11.8 g/dL (12-16); IMMATURE GRANULOCYTES 0.4 % (0-5); LYMPHOCYTES 26.2 % (15-50); MCH 29.7 pg (26.0-34.0); MCHC 33.9 g/dL (31.0-37.0); MCV 87.7 fL (80.0-100.0); MEAN PLATELET VOLUME 10.6 fL (7.4-10.4); MONOCYTES 17.9 % (2-11); NEUTROPHILS 48.9 % (40-80); PLATELET COUNT 181 10x3/uL (130-400); RBC 3.97 10x6/uL (4.00-5.40); WBC 5.3 10x3/uL (4.8-10.8)
[2017-01-03 05:43] LABS: ALBUMIN 2.3 g/dL (3.4-5.0); ALKALINE PHOSPHATASE 49 U/L (46-116); ALT (SGPT) 43 U/L (10-68); BILIRUBIN - TOTAL 0.58 mg/dL (0.2-1.3); CALC OSMOLALITY 273 mosm/kg (275-300); CARBON DIOXIDE 28.7 mmol/L (21.0-32.0); CHLORIDE - SERUM 105 mmol/L (98-107); CREATININE - SERUM 0.6 mg/dL (0.6-1.3); GLUCOSE 107 mg/dL (74-106); LIPASE 941 U/L (73-393); MAGNESIUM - SERUM 1.9 mg/dL (1.8-2.4); PHOSPHOROUS 3.8 mg/dL (2.5-4.9); PROTEIN - SERUM 5.5 g/dL (6.4-8.2); SODIUM 138 mmol/L (136-145); UREA NITROGEN 8 mg/dL (7-18); eGFR NON AFRICAN AMERICAN > 90 mL/min (90-120)
--- NOTE | 2017-01-03 07:35 | NUR ---
A&O, DENIES NEEDS, STATES SHES FEELING BETTER, BED LOWEST POSITION, CALL LIGHT IN REACH, WILL CONTINUE TO MONITOR
[2017-01-03 08:42] VITALS: BP 115/64
--- NOTE | 2017-01-03 12:52 | NUR ---
NUTRITION MONITORING & EVAL CHART REVIEWED. CLEAR LIQUID DIET. CONTINUES TPN AND LIPIDS. WILL MONITOR DIET ADVANCEMENT, LABS. RD FOLLOWING
--- NOTE | 2017-01-03 13:45 | NUR ---
DENIES NEEDS AT PRESENT. BED LOW CL IN REACH.
[2017-01-03 16:53] VITALS: BP 123/75
[2017-01-03 19:00] VITALS: BP 111/71
--- NOTE | 2017-01-03 20:00 | NUR ---
ASSESSMENT PER FLOWSHEET. IV PATENT RT UPPERARM PICC SITE OF TPN INFUSING AT 40CC'S/HR. NS AT 10CC'S/HR. LIBRARY CATALOGING TECHNICIAN OF DEMEROL IN USE WITH SETTINGS AT 25MG Q15 MIN W/200MG Q4HR L/O.
--- NOTE | 2017-01-03 22:00 | NUR ---
MEDS PER MAR.
[2017-01-04] VITALS: BP 109/60
--- NOTE | 2017-01-04 | NUR ---
EYES CLOSED RESPIRATIONS WITH EASE AND UNLABORED.
--- NOTE | 2017-01-04 03:00 | NUR ---
RESTING QUIETLY DENIES NEEDS.
[2017-01-04 04:00] VITALS: BP 103/59
[2017-01-04 06:29] LABS: ALBUMIN 2.3 g/dL (3.4-5.0); ALKALINE PHOSPHATASE 51 U/L (46-116); ALT (SGPT) 45 U/L (10-68); AMYLASE - SERUM 59 U/L (25-115); BILIRUBIN - DIRECT 0.11 mg/dL (0.00-0.30); BILIRUBIN - TOTAL 0.51 mg/dL (0.2-1.3); CALC OSMOLALITY 275 mosm/kg (275-300); CARBON DIOXIDE 27.8 mmol/L (21.0-32.0); CHLORIDE - SERUM 105 mmol/L (98-107); CREATININE - SERUM 0.5 mg/dL (0.6-1.3); GLUCOSE 99 mg/dL (74-106); LIPASE 835 U/L (73-393); PHOSPHOROUS 3.8 mg/dL (2.5-4.9); POTASSIUM - SERUM 3.8 mmol/L (3.5-5.1); PROTEIN - SERUM 5.6 g/dL (6.4-8.2); SODIUM 139 mmol/L (136-145); UREA NITROGEN 7 mg/dL (7-18); eGFR NON AFRICAN AMERICAN > 90 mL/min (90-120)
--- NOTE | 2017-01-04 07:45 | NUR ---
PATIENT RECEIVED ALERT IN LOW SANCHEZ POSITION. NO SIGNS OF DISTRESS NOTED. DENIES NEEDS. SIDE RAILS UP X2. BED IN LOW POSITION. CALL LIGHT AND HOSPITAL AIDES AND ASSISTANTS TEACHER BUTTON IN REACH.
[2017-01-04 08:00] VITALS: BP 98/55
--- NOTE | 2017-01-04 08:19 | NUR ---
SITTING UP IN BED ALERT EATING BREAKFAST. TOLERATING WELL. SCHEDULED MEDICATION ADMINISTERED. DENIES NEEDS. BED IN LOW POSITION. CALL LIGHT AND LOCOMOTIVE OBSERVER BUTTON IN REACH.
--- NOTE | 2017-01-04 10:45 | NUR ---
DRESSING TO RIGHT PICC CHANGED PER PROTOCOL USING STERILE TECHNIQUE AND CENTRAL LINE DRESSING KIT. NO REDNESS, INFLAMMATION OR DRAINAGE NOTED TO SITE. SOME BRUISING NOTED TO ARM. CLEANSED WITH PROVIDED [place] PREP, NEW BIOPATCH AND DRESSING PLACED. SWAB CAPS IN USE. WELL TOLERATED.
[2017-01-04 12:05] VITALS: BP 102/50
--- NOTE | 2017-01-04 13:00 | NUR ---
PATIENT C/O SORENESS TO BUTTOCK. PATIENT ASSESSED. NO SORES NOTED TO BUTTOCK, BUT SLIGHT REDNESS THAT IS BLANCHABLE. PATIENT IS ABLE TO AMBULATE AND REPOSITION SELF. ENCOURAGE PATIENT TO DO SO FREQUENTLY. OFFERED CREAM FOR BUTTOCK. DENIES NEEDS. CALL LIGHT IN REACH.
[2017-01-04 16:34] VITALS: BP 110/61
--- NOTE | 2017-01-04 17:10 | NUR ---
PATIENT ALERT IN BED. NO SIGNS OF DISTRESS NOTED. FAMILY PRESENT. SCHEDULED MEDICATION ADMINISTERED. SIDE RAILS UP X2. BED IN LOW POSITION. CALL LIGHT IN REACH.
[2017-01-04 20:00] VITALS: BP 127/75
--- NOTE | 2017-01-04 20:00 | NUR ---
ASSESSMENT PER FLOWSHEET. IV PATENT RT UPPER ARM PICC LINE WITH NS AT 10CC'S/HR TPN AT 40CC'S/HR. ASSISTANT NURSE MANAGER OF DEMEROL IN USE WITH SETTINGS AT 25MG Q15MIN W/200MG Q4H L/O.
--- NOTE | 2017-01-04 21:00 | NUR ---
MEDS GIVEN PER MAR.
[2017-01-05] VITALS: BP 126/72
--- NOTE | 2017-01-05 | NUR ---
RESTING IN BED SPOUSE AT BEDSIDE. SR UP X2 CALL LIGHT WITHIN REACH.
--- NOTE | 2017-01-05 02:43 | NUR ---
EYES CLOSED RESPIRATIONS WITH EASE AND UNLABORED.
--- NOTE | 2017-01-05 04:30 | NUR ---
LAB DRAWN FROM PICC LINE AND FLUSHED WITH SALINE.
[2017-01-05 04:37] LABS: ALBUMIN 2.3 g/dL (3.4-5.0); ALKALINE PHOSPHATASE 53 U/L (46-116); ALT (SGPT) 38 U/L (10-68); AMYLASE - SERUM 54 U/L (25-115); CALC OSMOLALITY 279 mosm/kg (275-300); CALCIUM 7.8 mg/dL (8.5-10.1); CARBON DIOXIDE 28.4 mmol/L (21.0-32.0); CHLORIDE - SERUM 107 mmol/L (98-107); CREATININE - SERUM 0.5 mg/dL (0.6-1.3); GLUCOSE 113 mg/dL (74-106); LIPASE 781 U/L (73-393); PROTEIN - SERUM 5.1 g/dL (6.4-8.2); SODIUM 141 mmol/L (136-145); UREA NITROGEN 6 mg/dL (7-18); eGFR NON AFRICAN AMERICAN > 90 mL/min (90-120)
--- NOTE | 2017-01-05 05:52 | NUR ---
RESING QUIETLY DENIES NEEDS.
--- NOTE | 2017-01-05 07:35 | NUR ---
ASSESSMENT PER FLOW SHEET.PT WITHOUT DISTRESS. DENIES NEEDS.REMAINS WITHOUT NAUSEA. CALL LIGHT IN REACH
[2017-01-05 08:26] VITALS: BP 105/60
[2017-01-05 12:57] VITALS: BP 117/72
[2017-01-05 16:11] VITALS: BP 107/63
--- NOTE | 2017-01-05 18:47 | NUR ---
REMAINS WITHOUT NEEDS.PT HAS AMBULATED IN HALLS TODAY.REMAINS WITHOUT NAUSEA.CONT PLAN OF CARE
--- NOTE | 2017-01-05 19:34 | NUR ---
PATIENT IS AWAKE, ALERT AND ORIENTED X'S 4. RESPIRATIONS ARE EVEN AND UNLABORED ON ROOM AIR. NO SIGNS OF DISTRESS NOTED. PATIENT IS EATING DINNER, STATED SHE WILL NOT EAT MORE THEN A QUARTER OF IT.
[2017-01-05 20:00] VITALS: BP 133/77
--- NOTE | 2017-01-05 20:40 | NUR ---
PATIENT ATE A FEW BITES OF TURKEY LUNCH MEAT. STATED SHE FEELS A LITTLE NAUSEOUS.
[2017-01-06] VITALS: BP 95/61
--- NOTE | 2017-01-06 03:38 | NUR ---
RESTING QUIETLY WITH EYES CLOSED.
[2017-01-06 04:00] VITALS: BP 105/70
[2017-01-06 06:13] LABS: ALBUMIN 2.3 g/dL (3.4-5.0); ALKALINE PHOSPHATASE 52 U/L (46-116); ALT (SGPT) 34 U/L (10-68); BILIRUBIN - TOTAL 0.44 mg/dL (0.2-1.3); CALC OSMOLALITY 273 mosm/kg (275-300); CALCIUM 8.2 mg/dL (8.5-10.1); CARBON DIOXIDE 25.6 mmol/L (21.0-32.0); CHLORIDE - SERUM 106 mmol/L (98-107); CREATININE - SERUM 0.5 mg/dL (0.6-1.3); GLUCOSE 100 mg/dL (74-106); LIPASE 873 U/L (73-393); MAGNESIUM - SERUM 1.8 mg/dL (1.8-2.4); PHOSPHOROUS 4.1 mg/dL (2.5-4.9); POTASSIUM - SERUM 3.8 mmol/L (3.5-5.1); PROTEIN - SERUM 5.9 g/dL (6.4-8.2); SODIUM 138 mmol/L (136-145); UREA NITROGEN 7 mg/dL (7-18); eGFR NON AFRICAN AMERICAN > 90 mL/min (90-120)
--- NOTE | 2017-01-06 07:30 | NUR ---
ASSESSMENT PER FLOW SHEET.PT WITHOUT DISTRESS.REPORTS SOME NAUSEA THIS AM. STATES SHE WILL TRY TO EAT SOME TODAY.CALL LIGHT IN REACH
[2017-01-06 07:53] VITALS: BP 108/57
--- NOTE | 2017-01-06 11:03 | NUR ---
NUTRITION MONITORING & EVAL CHART REVIEWED. DIET ADVANCED, CONTINUES TPN AND LIPIDS FOR NOW. WILL CONTINUE TO MONITOR PT PROGRESS. RD FOLLOWING
--- NOTE | 2017-01-06 12:59 | NUR ---
HAS AMBULATED IN HALLS.REMAINS WITHOUT DISTRESS.FAMILY AT BEDSIDE
[2017-01-06 15:53] VITALS: BP 94/56
[2017-01-06 20:00] VITALS: BP 124/54
[2017-01-07] VITALS: BP 105/54
[2017-01-07 05:32] LABS: BASOPHILS 0.5 % (0-2); EOSINOPHILS 2.8 % (0-7); HEMATOCRIT 34.6 % (36.0-48.0); HEMOGLOBIN 11.7 g/dL (12-16); IMMATURE GRANULOCYTES 0.3 % (0-5); MCH 29.3 pg (26.0-34.0); MCHC 33.8 g/dL (31.0-37.0); MCV 86.5 fL (80.0-100.0); MEAN PLATELET VOLUME 9.8 fL (7.4-10.4); MONOCYTES 16.1 % (2-11); NEUTROPHILS 56.3 % (40-80); PLATELET COUNT 194 10x3/uL (130-400); RDW 15.4 % (11.5-14.5); WBC 6.1 10x3/uL (4.8-10.8)
[2017-01-07 05:48] LABS: ALBUMIN 2.4 g/dL (3.4-5.0); ALKALINE PHOSPHATASE 56 U/L (46-116); ALT (SGPT) 30 U/L (10-68); AMYLASE - SERUM 86 U/L (25-115); BILIRUBIN - DIRECT 0.13 mg/dL (0.00-0.30); BILIRUBIN - INDIRECT 0.28 mg/dL (0.00-1.00); BILIRUBIN - TOTAL 0.41 mg/dL (0.2-1.3); CALC OSMOLALITY 275 mosm/kg (275-300); CALCIUM 8.2 mg/dL (8.5-10.1); CARBON DIOXIDE 26.8 mmol/L (21.0-32.0); CHLORIDE - SERUM 106 mmol/L (98-107); CREATININE - SERUM 0.5 mg/dL (0.6-1.3); GLUCOSE 99 mg/dL (74-106); LIPASE 1269 U/L (73-393); MAGNESIUM - SERUM 1.9 mg/dL (1.8-2.4); PHOSPHOROUS 4.4 mg/dL (2.5-4.9); POTASSIUM - SERUM 3.9 mmol/L (3.5-5.1); SODIUM 139 mmol/L (136-145); UREA NITROGEN 6 mg/dL (7-18); eGFR NON AFRICAN AMERICAN > 90 mL/min (90-120)
--- NOTE | 2017-01-07 08:00 | NUR ---
ASSESSMENT COMPLETE. R PICC LINE PATENT. BATTER MIXER HELPER DEMEROL [phone] IN FOR PAIN CONTROL. FAMILY AT BEDSIDE. DENIES ANY NEEDS AT THIS TIME.
--- NOTE | 2017-01-07 08:20 | NUR ---
OFF FLOOR TO MRI VIA .
[2017-01-07 08:34] VITALS: BP 95/50
--- NOTE | 2017-01-07 08:57 | NUR ---
RETURNED TO ROOM FROM MRI VIA WC. FAMILY AT BEDSIDE. DENIES ANY NEEDS AT THIS TIME.
--- NOTE | 2017-01-07 11:38 | NUR ---
NUTRITION MONITORING & EVAL CHART REVIEWED. RENEWED BMP, MAG, PHOS TO AM LABS. RD FOLLOWING
[2017-01-07 13:03] VITALS: BP 101/53
[2017-01-07 16:31] VITALS: BP 114/68
[2017-01-07 20:00] VITALS: BP 104/57
[2017-01-07 23:43] VITALS: BP 93/56
--- NOTE | 2017-01-08 00:14 | NUR ---
PATIENT AWAKE, ALERT AND ORIENTED X'S 4. PATIENT AND WATCHING TV ON THEIR LAPTOP. CHANGED ALL IV TUBING. FLUSHED EACH PICC LUMEN WITH 10ML SALINE FLUSH. PATIENT DENIES PAIN AT THIS TIME. PATIENT AND DENY NEEDS.
--- NOTE | 2017-01-08 02:00 | NUR ---
PATIENT IS RESTING QUIETLY WITH EYES CLOSED. C-PAP ON. NO SIGNS OF DISTRESS NOTED.
[2017-01-08 04:02] VITALS: BP 104/60
[2017-01-08 05:41] LABS: ALBUMIN 2.3 g/dL (3.4-5.0); ALKALINE PHOSPHATASE 51 U/L (46-116); ALT (SGPT) 26 U/L (10-68); AMYLASE - SERUM 81 U/L (25-115); CALC OSMOLALITY 273 mosm/kg (275-300); CARBON DIOXIDE 26.6 mmol/L (21.0-32.0); CHLORIDE - SERUM 106 mmol/L (98-107); CHOLESTEROL, TOTAL 99 mg/dL (0-200); CREATININE - SERUM 0.5 mg/dL (0.6-1.3); GLUCOSE 90 mg/dL (74-106); HDL CHOLESTEROL 49 mg/dL (32-96); LDL CHOLESTEROL 31 mg/dL (0-100); LDL-HDL RATIO 0.6 ratio (1.5-3.5); LIPASE 1177 U/L (73-393); MAGNESIUM - SERUM 1.8 mg/dL (1.8-2.4); PHOSPHOROUS 4.5 mg/dL (2.5-4.9); POTASSIUM - SERUM 3.7 mmol/L (3.5-5.1); PROTEIN - SERUM 5.8 g/dL (6.4-8.2); SODIUM 138 mmol/L (136-145); TRIGLYCERIDE 98 mg/dL (30-200); UREA NITROGEN 7 mg/dL (7-18); eGFR NON AFRICAN AMERICAN > 90 mL/min (90-120)
--- NOTE | 2017-01-08 07:55 | NUR ---
ASSESSMENT COMPLETE. R PICC PATENT. TPN INFUSING AT 40 CC/HR AND NS INFUSING AT 10 CC/HR VIA PUMP. OUTPATIENT CODER DEMEROL [phone] IN USE FOR PAIN CONTROL. NPO FOR SMALL BOWEL FOLLOW THROUGH TODAY. FAMILY AT BEDSIDE. DENIES ANY NEEDS AT THIS TIME.
--- NOTE | 2017-01-08 08:25 | NUR ---
OFF FLOOR TO RADIOLOGY VIA .
[2017-01-08 08:32] VITALS: BP 107/57
[2017-01-08 11:56] VITALS: BP 112/54
--- NOTE | 2017-01-08 14:00 | NUR ---
VISITING WITH FAMILY. DENIES ANY NEEDS AT PRESENT.
[2017-01-08 16:42] VITALS: BP 106/60
[2017-01-08 19:00] VITALS: BP 96/63
--- NOTE | 2017-01-08 19:45 | NUR ---
PATIENT IS IN BED, PLAYING ON HER PHONE. AT BEDSIDE. BOTH DENY NEEDS. NO SIGNS OF DISTRESS NOTED.
[2017-01-09] VITALS: BP 103/53
[2017-01-09 04:00] VITALS: BP 96/54
[2017-01-09 04:48] LABS: BASOPHILS 0.5 % (0-2); EOSINOPHILS 3.8 % (0-7); HEMATOCRIT 33.2 % (36.0-48.0); HEMOGLOBIN 11.4 g/dL (12-16); IMMATURE GRANULOCYTES 0.3 % (0-5); LYMPHOCYTES 25.3 % (15-50); MCH 29.9 pg (26.0-34.0); MCHC 34.3 g/dL (31.0-37.0); MCV 87.1 fL (80.0-100.0); MEAN PLATELET VOLUME 10.3 fL (7.4-10.4); MONOCYTES 12.3 % (2-11); NEUTROPHILS 57.8 % (40-80); PLATELET COUNT 189 10x3/uL (130-400); RBC 3.81 10x6/uL (4.00-5.40); RDW 15.2 % (11.5-14.5); WBC 6.1 10x3/uL (4.8-10.8)
[2017-01-09 05:18] LABS: ALBUMIN 2.2 g/dL (3.4-5.0); ALKALINE PHOSPHATASE 50 U/L (46-116); ALT (SGPT) 24 U/L (10-68); AMYLASE - SERUM 93 U/L (25-115); BILIRUBIN - TOTAL 0.34 mg/dL (0.2-1.3); CALC OSMOLALITY 274 mosm/kg (275-300); CARBON DIOXIDE 27.9 mmol/L (21.0-32.0); CHLORIDE - SERUM 106 mmol/L (98-107); CREATININE - SERUM 0.5 mg/dL (0.6-1.3); GLUCOSE 88 mg/dL (74-106); LIPASE 1329 U/L (73-393); MAGNESIUM - SERUM 1.7 mg/dL (1.8-2.4); PHOSPHOROUS 4.2 mg/dL (2.5-4.9); POTASSIUM - SERUM 3.9 mmol/L (3.5-5.1); PROTEIN - SERUM 5.6 g/dL (6.4-8.2); SODIUM 139 mmol/L (136-145); UREA NITROGEN 8 mg/dL (7-18); eGFR NON AFRICAN AMERICAN > 90 mL/min (90-120)
--- NOTE | 2017-01-09 07:30 | NUR ---
RECIEVED PT DURING WALKING ROUNDS. PT RESTING IN BED WITH COMPLAINTS OF ABDOMINAL PAIN OF A 7 ON A SCALE OF 1-10. NO MEDICATION REQUESTED AT THIS TIME. ASSESSMENT DONE PER FLOWSHEET. BED IN LOW POSITION AND CALL LIGHT WITHIN REACH. WILL CONTINUE TO MONITOR.
[2017-01-09 08:38] VITALS: BP 89/65
--- NOTE | 2017-01-09 11:20 | NUR ---
CALL PLACED TO DR. BARBOSA AT THIS TIME PER REQUEST OF THE PT, CALL TRANSFERED INTO ROOM FOR PT TO DISCUSS CONCERNS AND PLAN OF CARE WITH . WILL CONTINUE TO MONITOR.
[2017-01-09 13:30] VITALS: BP 144/74
[2017-01-09 17:05] VITALS: BP 114/64
[2017-01-09 20:00] VITALS: BP 126/78
--- NOTE | 2017-01-09 20:05 | NUR ---
PATIENT RESTING IN BED AND DENIES NEEDS AT THIS TIME. BED IN LOWEST POSITION AND CALL LIGHT WITHIN REACH. ENCOURAGED THE PATIENT TO CALL IF SHE HAS NEEDS.
[2017-01-10] VITALS: BP 102/44
[2017-01-10 06:21] LABS: CALC OSMOLALITY 275 mosm/kg (275-300); CARBON DIOXIDE 26.7 mmol/L (21.0-32.0); CHLORIDE - SERUM 107 mmol/L (98-107); CREATININE - SERUM 0.5 mg/dL (0.6-1.3); LIPASE 1071 U/L (73-393); MAGNESIUM - SERUM 1.8 mg/dL (1.8-2.4); PHOSPHOROUS 4.4 mg/dL (2.5-4.9); SODIUM 138 mmol/L (136-145); UREA NITROGEN 6 mg/dL (7-18); eGFR NON AFRICAN AMERICAN > 90 mL/min (90-120)
[2017-01-10 06:22] LABS: GLUCOSE 135 mg/dL (74-106)
--- NOTE | 2017-01-10 07:30 | NUR ---
RECIEVED PT DURING WALKING ROUNDS. PT RESTING IN BED WITH COMPLAINTS OF PAIN OF A 6 ON A SCALE OF 1-10. RAILROAD CAR CHECKER IN USE. ASSESSMENT DONE PER FLOWSHEET. BED IN LOW POSITIOIN AND CALL LIGHT WITHIN REACH. WILL CONTINUE TO MONITOR.
[2017-01-10 09:23] VITALS: BP 101/70
[2017-01-10 12:59] VITALS: BP 102/63
[2017-01-10 13:14] LABS: THYROID STIMULATING HORMONE 0.46 uIU/mL (0.36-3.74)
[2017-01-10 16:58] VITALS: BP 108/72
--- NOTE | 2017-01-10 17:00 | NUR ---
DC'D SPANISH TRANSLATOR AT THIS TIME
[2017-01-10 20:00] VITALS: BP 113/69
--- NOTE | 2017-01-10 23:31 | NUR ---
ALERT AND ORIENTED X'S 4. WATCHING TV WITH HER . BOTH DENY NEEDS AT THIS TIME.
--- NOTE | 2017-01-11 01:30 | NUR ---
CVL DRESSING CHANGED. STERILE TECHNIQUE MAINTAINED. CHANGED ALL OF THE IV TUBING. PATIENT WATCHING TV. DENIES NEEDS AT THIS TIME.
[2017-01-11 04:00] VITALS: BP 113/65
[2017-01-11 06:03] LABS: ALBUMIN 2.3 g/dL (3.4-5.0); ALKALINE PHOSPHATASE 52 U/L (46-116); ALT (SGPT) 22 U/L (10-68); AMYLASE - SERUM 82 U/L (25-115); CALC OSMOLALITY 280 mosm/kg (275-300); CALCIUM 8.1 mg/dL (8.5-10.1); CARBON DIOXIDE 25.5 mmol/L (21.0-32.0); CHLORIDE - SERUM 108 mmol/L (98-107); CREATININE - SERUM 0.6 mg/dL (0.6-1.3); GLUCOSE 127 mg/dL (74-106); LIPASE 1089 U/L (73-393); MAGNESIUM - SERUM 1.6 mg/dL (1.8-2.4); PHOSPHOROUS 4.1 mg/dL (2.5-4.9); POTASSIUM - SERUM 4.1 mmol/L (3.5-5.1); PROTEIN - SERUM 5.6 g/dL (6.4-8.2); SODIUM 141 mmol/L (136-145); UREA NITROGEN 6 mg/dL (7-18); eGFR NON AFRICAN AMERICAN > 90 mL/min (90-120)
--- NOTE | 2017-01-11 08:30 | NUR ---
ASSESSMENT COMPLETE. R PICC LINE PATENT. TPN INFUSING AT 40 CC/HR AND NS INFUSING AT 10 CC/HR VIA PUMP. FAMILY AT BEDSIDE.
[2017-01-11 09:52] VITALS: BP 98/61
--- NOTE | 2017-01-11 11:00 | NUR ---
NO CHANGES NOTED. RESTING QUIETLY IN BED AT THIS TIME.
[2017-01-11 13:07] VITALS: BP 100/68
--- NOTE | 2017-01-11 13:40 | NUR ---
NUTRITION MONITORING & EVAL CHART REVIEWED, PT VISIT x2. DISCUSSED FOOD PREFERENCES, PROVIDED ALTERNATIVE MENU. TPN GEORGE'Zeferino. RD FOLLOWING
--- NOTE | 2017-01-11 14:14 | NUR ---
AMBULATING IN HALLWAY. DENIES ANY NEEDS AT PRESENT.
--- NOTE | 2017-01-11 14:30 | NUR ---
AMBULATING IN HALLWAY. TPN GEORGE'D. DENIES ANY NEEDS AT PRESENT.
[2017-01-11 16:41] VITALS: BP 107/65
--- NOTE | 2017-01-11 18:02 | NUR ---
REPORTS VOMITING BAKED FISH AND COTTAGE CHEESE FEW MINUTES AFTER EATING IT. ZOFRAN GIVEN SLOW IVP. DENIES ANY FURTHER NEEDS AT THIS TIME.
[2017-01-11 19:00] VITALS: BP 107/68
--- NOTE | 2017-01-11 19:15 | NUR ---
BEDSIDE REPORT RECEIVED AND CARE OF PT ASSUMED. PT LYING ON RIGHT SIDE WITH EYES CLOSED AND EASY RESPIRATIONS. RIGHT PICC LINE SALINE LOCKED. WILL MONITOR FOR NEEDS.
--- NOTE | 2017-01-11 21:50 | NUR ---
HS MEDICATIONS GIVEN TO INCLUDE NORCO PER REQUEST FOR PAIN. GAVE PRINTED INFORMATION ON NEW MEDICATION, QUESTRAIN.
[2017-01-12] VITALS: BP 106/69
[2017-01-12 04:00] VITALS: BP 113/70
--- NOTE | 2017-01-12 04:45 | NUR ---
UNABLE TO DRAW BLOOD FROM PICC LINE FOR AM LABS.
[2017-01-12 06:32] LABS: ALBUMIN 2.3 g/dL (3.4-5.0); ALKALINE PHOSPHATASE 53 U/L (46-116); ALT (SGPT) 24 U/L (10-68); AMYLASE - SERUM 67 U/L (25-115); BILIRUBIN - TOTAL 0.41 mg/dL (0.2-1.3); CHLORIDE - SERUM 106 mmol/L (98-107); CREATININE - SERUM 0.6 mg/dL (0.6-1.3); GLUCOSE 113 mg/dL (74-106); LIPASE 723 U/L (73-393); MAGNESIUM - SERUM 1.6 mg/dL (1.8-2.4); PHOSPHOROUS 3.6 mg/dL (2.5-4.9); POTASSIUM - SERUM 3.8 mmol/L (3.5-5.1); PROTEIN - SERUM 5.7 g/dL (6.4-8.2); SODIUM 139 mmol/L (136-145); eGFR NON AFRICAN AMERICAN > 90 mL/min (90-120)
[2017-01-12 06:42] LABS: CALC OSMOLALITY 275 mosm/kg (275-300)
[2017-01-12 06:44] LABS: UREA NITROGEN 4 mg/dL (7-18)
--- NOTE | 2017-01-12 07:15 | NUR ---
REPORT RECEIVED FROM HEEL SHAPER NURSE. CALL LIGHT IN REACH.
[2017-01-12 07:30] LABS: IGG SUBCLASS 1 302 mg/dL (248-810); IGG SUBCLASS 2 410 mg/dL (130-555); IGG SUBCLASS 3 40 mg/dL (15-102); IGG SUBCLASS 4 9 mg/dL (2-96)
[2017-01-12 08:00] VITALS: BP 94/54
--- NOTE | 2017-01-12 08:45 | NUR ---
Spoke with Dr Davis (01/11/17) about discharge planning. He stated that him and Dr Reyes are decreasing pts IC meds and stopping TPN and plan on discharging by the end of the week. I called Dr. Alvarado and gave him an update on discharge planning this AM. CM will continue to follow and assist as needed.
--- NOTE | 2017-01-12 09:01 | NUR ---
ASSESSMENT COMPLETED. AM MEDS ADMINISTERED. REFUSES SCDs AT THIS TIME. OFFERED PAIN PILL BUT REFUSED. STICKERS CHANGED FOR IV TUBING TO GET CHANGED ON MONDAY INSTEAD OF MONDAY BECAUSE TUBING WAS CHANGED ON THE WHICH WAS MONDAY. CALL LIGHT IN REACH. WILL CONTINUE WITH PLAN OF CARE.
--- NOTE | 2017-01-12 10:38 | NUR ---
QUESTRAN MIXED IN WATER PER PATIENT REQUEST.
--- NOTE | 2017-01-12 11:10 | NUR ---
LACTINEX PO. ZOFRAN IVP PER C/O NAUSEA. CALL LIGHT IN REACH.
--- NOTE | 2017-01-12 12:26 | NUR ---
EXPLAINED TO PATIENT THAT THE PHARMACY WAS GOING TO BORROW SOME PANCREAS PILLS FROM ANOTHER PHARMACY. VERBALIZED UNDERSTANDING.
--- NOTE | 2017-01-12 13:27 | NUR ---
PANCREAS PILLS PO AND CARAFATE. FLUSHED PICC LINE ALSO WITH SALINE.
--- NOTE | 2017-01-12 15:40 | NUR ---
AMBULATING IN HALLWAY. TOLERATING WELL AT THIS TIME.
[2017-01-12 16:00] VITALS: BP 105/64
--- NOTE | 2017-01-12 16:15 | NUR ---
AMBULATING IN HALLWAY AT THIS TIME. DENIES NEEDS. RESPIRATIONS EVEN AND NON LABORED. WILL CONTINUE WITH PLAN OF CARE.
--- NOTE | 2017-01-12 17:09 | NUR ---
EVENING MEDS ADMINISTERED PER ORDER. DR. BOYER IN ROOM TO SEE PATIENT.
--- NOTE | 2017-01-12 18:22 | NUR ---
NO CHANGES IN INITIAL ASSESSMENT. STILL REFUSES SCDs. CALL LIGHT IN REACH. WILL CONTINUE WITH PLAN OF CARE.
--- NOTE | 2017-01-12 19:00 | NUR ---
BEDSIDE REPORT RECEIVED AND CARE OF PT ASSUMED. PT AMBULATING IN THE HALLWAY AT THIS TIME. RIGHT PICC LINE SALINE LOCKED. WILL MONITOR ROWDY FOR NEEDS.
[2017-01-12 20:00] VITALS: BP 102/67
--- NOTE | 2017-01-12 20:37 | NUR ---
HS MEDICATIONS GIVEN. WILL CONTINUE TO MONITOR FOR NEEDS.
--- NOTE | 2017-01-12 23:17 | NUR ---
GAVE NORCO PER REQUEST FOR PAIN PER PRN ORDER. WILL MONITOR FOR EFFECTIVENESS.
[2017-01-13] VITALS: BP 100/55
--- NOTE | 2017-01-13 02:26 | NUR ---
PT LYING ON RIGHT SIDE WITH EYES CLOSED AND UNLABORED BREATHING. SPOUSE IS AT BEDSIDE. WILL CONTINUE TO MONITOR FOR NEEDS.
[2017-01-13 05:27] LABS: ALBUMIN 2.3 g/dL (3.4-5.0); ALKALINE PHOSPHATASE 53 U/L (46-116); ALT (SGPT) 29 U/L (10-68); AMYLASE - SERUM 65 U/L (25-115); BILIRUBIN - TOTAL 0.36 mg/dL (0.2-1.3); CALC OSMOLALITY 274 mosm/kg (275-300); CALCIUM 7.8 mg/dL (8.5-10.1); CHLORIDE - SERUM 107 mmol/L (98-107); CREATININE - SERUM 0.6 mg/dL (0.6-1.3); GLUCOSE 107 mg/dL (74-106); LIPASE 732 U/L (73-393); POTASSIUM - SERUM 3.9 mmol/L (3.5-5.1); PROTEIN - SERUM 5.3 g/dL (6.4-8.2); SODIUM 139 mmol/L (136-145); UREA NITROGEN 5 mg/dL (7-18); eGFR NON AFRICAN AMERICAN > 90 mL/min (90-120)
--- NOTE | 2017-01-13 07:10 | NUR ---
REPORT RECEIVED FROM FREIGHT ELEVATOR OPERATOR NURSE. CALL LIGHT IN REACH.
--- NOTE | 2017-01-13 08:05 | NUR ---
ASSESSMENT COMPLETED. STILL REFUSES SCDs. CALL LIGHT IN REACH. WILL CONTINUE WITH PLAN OF CARE.
[2017-01-13] MEDS ORDERED: QUESTRAN PACK4 G/PKT PO (08:06)
[2017-01-13] MEDS ORDERED: PEPCID20 MG PO (08:07)
[2017-01-13] MEDS ORDERED: Pancrease 5000,17,00 PO (08:07)
[2017-01-13] MEDS ORDERED: FLORAJEN3 CAPS460 MG PO (08:08)
[2017-01-13] MEDS ORDERED: CARAFATE1 G/10 ML PO (08:08)
[2017-01-13] MEDS ORDERED: ZOFRAN ODT4 MG/UDTAB PO (08:10)
--- NOTE | 2017-01-13 09:26 | NUR ---
Patient being discharged home today. Patient denies any HH needs at this time and will be traveling to [facility] next week for a specialist. Patients mother will be picking her up at discharge
--- NOTE | 2017-01-13 09:26 | NUR ---
AM MEDS ADMINISTERED AT THIS TIME. CALL LIGHT IN REACH.
[2017-01-13 09:35] VITALS: BP 121/86
--- NOTE | 2017-01-14 12:17 | DS ---
PATIENT:RIMA LARSON :72 MEDICAL RECORD: [id number] DISCHARGE SUMMARY ADMISSION DATE: 12/22/16 DISCHARGE DATE: 01/13/17 DATE OF ADMISSION: 12/22/2016 DATE OF DISCHARGE: 01/13/2017 ADMISSION DIAGNOSES: Acute pancreatitis, mild epigastric pain, adnexal pain, pelvic pain, renal calculi. DISCHARGE DIAGNOSES: Chronic pancreatitis, chronic elevation in lipase, no radiographic changes of the pancreas, nonobstructing renal calculi, small thyroid nodule with normal thyroid indices, persistent nausea, delayed emptying, status post gastric sleeve. CONSULTS: Dr. Berger, urology. Dr. Davis, general surgery who also performed her gastric sleeve. Dr. Reyes, GI. HOSPITAL COURSE: The patient had a protracted hospital course. Due to her persistent nausea and vomiting, she was ambulatory, tolerate some meals. Dr. Reyes discussed case with pancreatic center at [facility] and they agreed to see the patient in followup. The patient's chronic conditions are stable. She is tolerating meals. She does have some nausea, counseled on the importance of very small portions, clear liquid diet until cleared by pancreatic center at [facility] GI and general surgery agreed with discharge. Discussed case with Dr. Davis this a.m. The patient is discharged to home. MEDICATIONS: Per med rec. PHYSICAL EXAMINATION: VITAL SIGNS: On discharge, temperature 99, blood pressure 100/55, heart rate 68, respirations 16, and O2 sats 98% room air. GENERAL: Alert, oriented, no distress. HEART: Regular rate and rhythm. LUNGS: Clear. ABDOMEN: Soft, bowel sounds positive. EXTREMITIES: Present times 4. NEUROLOGIC: No focal deficits. LABORATORY DATA: Chemistry on discharge: sodium 139, potassium 3.9, chloride 107, bicarbonate 27, BUN 5, creatinine 0.6, glucose 107, T-bili 0.36. AST is 25, ALT is 29, albumin 2.3. Amylase is 65; amylase has remained normal throughout hospitalization except for December 30, was mildly elevated at 122, otherwise has remained normal. IgG 1, IgG 2, IgG 3, and IgG4 all normal. No significant findings with CT and MRCP. The patient also underwent EGD. Again, the patient is discharged home in stable improved condition. Counseled on the importance of follow up with [facility] pancreatic center, clear liquid diet. Please see chart for further details. TRANSINT:[id number] Voice Confirmation ID: [id number] DOCUMENT ID: [id number] DISCHARGE SUMMARY REPORT [id number] RIMA LARSON ROBERT DO at 1217 CC: [id number] DICTATION DATE: 01/13/17821 FISH HATCHERY SUPERVISOR: 01/13/17 2240 DIS IN 01/13/17 [place] [id number] [place] [address]
== END 2017-01-13 11:09 | disposition home or self-care (01) | DRG 440 ==
LOC: D.ER 14:09 → D.MS 17:04
PROVIDERS: Emergency Medicine; Family Medicine; Internal Medicine Gastroenterology; Surgery; ADMIT Family Medicine
PROC: 0DB68ZX Excision of Stomach, Via Natural or Artificial Opening Endoscopic, Diagnostic (ICD-10-PCS; 2016-12-26)
PROC: 05HB33Z Insertion of Infusion Device into Right Basilic Vein, Percutaneous Approach (ICD-10-PCS; principal; 2016-12-27)
PROC: 0T778DZ Dilation of Left Ureter with Intraluminal Device, Via Natural or Artificial Opening Endoscopic (ICD-10-PCS; 2016-12-27)
PROC: B54MZZA Ultrasonography of Right Upper Extremity Veins, Guidance (ICD-10-PCS; 2016-12-27)
PROC: 02HV33Z Insertion of Infusion Device into Superior Vena Cava, Percutaneous Approach (ICD-10-PCS; 2016-12-30)
PROC: B5181ZA Fluoroscopy of Superior Vena Cava using Low Osmolar Contrast, Guidance (ICD-10-PCS; 2016-12-30)
DX: K85.00 Idiopathic acute pancreatitis without necrosis or infection (principal); N20.0 Calculus of kidney; K29.70 Gastritis, unspecified, without bleeding; M54.5 Low back pain; M25.48 Effusion, other site; G47.33 Obstructive sleep apnea (adult) (pediatric); K59.00 Constipation, unspecified; E66.01 Morbid (severe) obesity due to excess calories; Z68.38 Body mass index [BMI] 38.0-38.9, adult; E86.0 Dehydration; E04.1 Nontoxic single thyroid nodule; R11.0 Nausea

== ENCOUNTER → 2017-01-20 10:22 | Outpatient (CLI) | payer BC ==
[2016-12-23 13:21] VITALS: BMI 38.8
[~2017-01-20 10:22] MED LIST changes: +CARAFATE1 G/10 ML PO; +DILAUDID4 MG PO; +FLORAJEN3 CAPS460 MG PO; +OMEPRAZOLE40 MG PO; +PEPCID20 MG PO; +POTASSIUM CHLO20 MEQ PO; +Pancrease 5000,17,00 PO; +QUESTRAN PACK4 G/PKT PO; +ZOFRAN ODT4 MG/UDTAB PO
[2017-01-20 10:57] LABS: BASOPHILS 0.2 % (0-2); EOSINOPHILS 2.8 % (0-7); HEMATOCRIT 39.6 % (36.0-48.0); HEMOGLOBIN 13.4 g/dL (12-16); IMMATURE GRANULOCYTES 0.2 % (0-5); LYMPHOCYTES 22.4 % (15-50); MCH 29.6 pg (26.0-34.0); MCHC 33.8 g/dL (31.0-37.0); MCV 87.4 fL (80.0-100.0); MEAN PLATELET VOLUME 10.1 fL (7.4-10.4); MONOCYTES 8.5 % (2-11); NEUTROPHILS 65.9 % (40-80); RBC 4.53 10x6/uL (4.00-5.40); RDW 14.8 % (11.5-14.5); WBC 6.4 10x3/uL (4.8-10.8)
[2017-01-20 10:59] LABS: PLATELET COUNT 297 10x3/uL (130-400)
[2017-01-20 11:03] LABS: APPEARANCE HAZY (CLEAR); COLOR DK YELLOW (YELLOW)
[2017-01-20 11:04] LABS: BILIRUBIN NEGATIVE (NEGATIVE); GLUCOSE NEGATIVE (NEGATIVE); KETONE LARGE mg/dL (NEGATIVE); LEUKOCYTE ESTERASE TRACE (NEGATIVE); NITRITE NEGATIVE (NEGATIVE); PROTEIN NEGATIVE (NEGATIVE); UROBILINOGEN NORMAL (NORMAL)
[2017-01-20 11:05] LABS: BACTERIA MODERATE /hpf (NONE SEEN); MUCUS >1+ /lpf (NONE SEEN)
[2017-01-20 11:13] LABS: ALBUMIN 3.4 g/dL (3.4-5.0); ALKALINE PHOSPHATASE 64 U/L (46-116); ALT (SGPT) 39 U/L (10-68); AMYLASE - SERUM 158 U/L (25-115); BILIRUBIN - DIRECT 0.19 mg/dL (0.00-0.30); BILIRUBIN - INDIRECT 0.41 mg/dL (0.00-1.00); CALC OSMOLALITY 274 mosm/kg (275-300); CARBON DIOXIDE 21.1 mmol/L (21.0-32.0); CHLORIDE - SERUM 105 mmol/L (98-107); CREATININE - SERUM 0.7 mg/dL (0.6-1.3); GAMMA GT 44 U/L (5-85); GLUCOSE 92 mg/dL (74-106); POTASSIUM - SERUM 3.7 mmol/L (3.5-5.1); PROTEIN - SERUM 7.5 g/dL (6.4-8.2); SODIUM 138 mmol/L (136-145); UREA NITROGEN 10 mg/dL (7-18); eGFR NON AFRICAN AMERICAN > 90 mL/min (90-120)
[2017-01-20 11:24] LABS: LIPASE 2234 U/L (73-393)
[2017-01-20 12:03] LABS: ERYTHROCYTE SEDIMENTATION RATE 37 mm/hr (0-20)
[2017-01-21 07:19] LABS: FOLATE (FOLIC ACID) - SERUM >20.0 ng/mL (>3.0)
== END | disposition home or self-care (01) ==
LOC: D.LAB 10:22
PROVIDERS: Surgery
DX: R31.9 Hematuria, unspecified (principal); D64.9 Anemia, unspecified; K85.90 Acute pancreatitis without necrosis or infection, unspecified

== ENCOUNTER 2017-01-25 13:25 | Inpatient (IN) | payer BC ==
[~2017-01-25] VITALS: Ht 170.2 cm; Wt 105.6 kg
[2017-01-25 14:15] LABS: BASOPHILS 0.3 % (0-2); HEMATOCRIT 38.4 % (36.0-48.0); HEMOGLOBIN 13.3 g/dL (12-16); IMMATURE GRANULOCYTES 0.1 % (0-5); LYMPHOCYTES 14.4 % (15-50); MCH 30.2 pg (26.0-34.0); MCHC 34.6 g/dL (31.0-37.0); MCV 87.3 fL (80.0-100.0); MEAN PLATELET VOLUME 10.2 fL (7.4-10.4); MONOCYTES 8.1 % (2-11); NEUTROPHILS 76.1 % (40-80); PLATELET COUNT 280 10x3/uL (130-400); RDW 14.8 % (11.5-14.5); WBC 6.9 10x3/uL (4.8-10.8)
[2017-01-25 14:32] LABS: ALBUMIN 3.2 g/dL (3.4-5.0); ALKALINE PHOSPHATASE 56 U/L (46-116); ALT (SGPT) 20 U/L (10-68); AMYLASE - SERUM 95 U/L (25-115); BILIRUBIN - TOTAL 0.55 mg/dL (0.2-1.3); CALC OSMOLALITY 272 mosm/kg (275-300); CALCIUM 9.1 mg/dL (8.5-10.1); CARBON DIOXIDE 19.1 mmol/L (21.0-32.0); CHLORIDE - SERUM 104 mmol/L (98-107); CREATININE - SERUM 0.7 mg/dL (0.6-1.3); GLUCOSE 89 mg/dL (74-106); LIPASE 1057 U/L (73-393); POTASSIUM - SERUM 3.9 mmol/L (3.5-5.1); PROTEIN - SERUM 7.2 g/dL (6.4-8.2); SODIUM 138 mmol/L (136-145); UREA NITROGEN 7 mg/dL (7-18); eGFR NON AFRICAN AMERICAN > 90 mL/min (90-120)
[2017-01-25 20:00] VITALS: BP 110/63
--- NOTE | 2017-01-25 20:02 | NUR ---
RECIEVED FROM ER TO ROOM 2202.ALERT,ORIENTED. CC ABD PAIN WITH NAUSEA. SL TO RIGHT ARM WITHOUT REDNESS OR EDEMA NOTED. NO COMPLAINTS AT PRESENT. CL IN REACH.
[2017-01-25 21:48] VITALS: BP 110/63; BMI 36.7
[2017-01-26] VITALS: BP 86/49
--- NOTE | 2017-01-26 01:49 | NUR ---
RESTING QUIETLY. NO DISTRESS NOTED. CL IN REACH. REMAINS AT BEDSIDE,
[2017-01-26 04:00] VITALS: BP 101/58
[2017-01-26 04:40] LABS: BASOPHILS 0.5 % (0-2); EOSINOPHILS 5.2 % (0-7); HEMATOCRIT 38.2 % (36.0-48.0); HEMOGLOBIN 12.9 g/dL (12-16); IMMATURE GRANULOCYTES 0.2 % (0-5); LYMPHOCYTES 33.3 % (15-50); MCH 29.9 pg (26.0-34.0); MCHC 33.8 g/dL (31.0-37.0); MCV 88.4 fL (80.0-100.0); MEAN PLATELET VOLUME 10.4 fL (7.4-10.4); MONOCYTES 10.5 % (2-11); NEUTROPHILS 50.3 % (40-80); PLATELET COUNT 294 10x3/uL (130-400); RBC 4.32 10x6/uL (4.00-5.40); RDW 14.8 % (11.5-14.5); WBC 6.5 10x3/uL (4.8-10.8)
[2017-01-26 05:02] LABS: ALKALINE PHOSPHATASE 52 U/L (46-116); ALT (SGPT) 23 U/L (10-68); BILIRUBIN - DIRECT 0.14 mg/dL (0.00-0.30); BILIRUBIN - INDIRECT 0.46 mg/dL (0.00-1.00); CALC OSMOLALITY 281 mosm/kg (275-300); CALCIUM 8.7 mg/dL (8.5-10.1); CARBON DIOXIDE 22.7 mmol/L (21.0-32.0); CHLORIDE - SERUM 108 mmol/L (98-107); CHOL - HDL RATIO 1.8 ratio (2.3-4.1); CHOLESTEROL, TOTAL 101 mg/dL (0-200); CREATININE - SERUM 0.7 mg/dL (0.6-1.3); GLUCOSE 109 mg/dL (74-106); HDL CHOLESTEROL 56 mg/dL (32-96); LDL CHOLESTEROL 29 mg/dL (0-100); LDL-HDL RATIO 0.5 ratio (1.5-3.5); LIPASE 605 U/L (73-393); POTASSIUM - SERUM 3.6 mmol/L (3.5-5.1); PROTEIN - SERUM 6.6 g/dL (6.4-8.2); SODIUM 142 mmol/L (136-145); TRIGLYCERIDE 80 mg/dL (30-200); UREA NITROGEN 6 mg/dL (7-18); eGFR NON AFRICAN AMERICAN > 90 mL/min (90-120)
[2017-01-26 05:05] LABS: AMYLASE - SERUM 69 U/L (25-115)
--- NOTE | 2017-01-26 06:25 | NUR ---
NO COMPLAINTS VOICED. CL IN REACH
--- NOTE | 2017-01-26 07:06 | HP ---
PATIENT: RIMA LARSON MEDICAL RECORD: [id number] ACCOUNT: [id number] LOCATION:D.MS [id number] : [birth year] ADMISSION DATE: 01/25/17 HISTORY AND PHYSICAL EXAMINATION HISTORY OF PRESENT ILLNESS: A 46-year old female presented to the Emergency Room with generalized abdominal pain, nausea, some pain radiating to her back. She had an extended hospitalization December 22 to January 17 with pancreatitis and elevated lipase. GI and general surgery were consulted. No clear etiology. The patient has had a gastric sleeve, had a history of abdominal hysterectomy, colonoscopy with polyp biopsy July 2015, had an EGD in 12/26/2016, was discharged on pancreatic enzymes and antiemetics. GI reportedly had the patient to be evaluated at [facility] [place] or [facility]. This is yet to take place. The patient is having persistent symptoms. A gastric sleeve was placed in September this year. REVIEW OF SYSTEMS: HEENT: No cephalgia, visual changes, tinnitus, epistaxis or dysphagia. CARDIOVASCULAR: Denies chest pain. PULMONARY: Denies hemoptysis, denies night sweats. GASTROINTESTINAL: Admits dry heaves. No vomiting. This may be restricted because of the gastric sleeve. Diffuse abdominal pain with radiation to her back. GENITOURINARY: No acute changes. ENDOCRINE: Denies polyuria, polydipsia and polyphagia. MUSCULOSKELETAL: No acute changes. PHYSICAL EXAMINATION: VITAL SIGNS: Temp 99.8, blood pressure is 111/87, heart rate 107, respirations 20 and O2 sats 98% room air. GENERAL: Alert and oriented. Lsed-vb-peigtefc distress secondary to above. HEENT: Normocephalic, atraumatic. Eyes: Pupils equally round and reactive to light and accommodation. Extraocular muscles intact. Conjunctiva was not injected. Ears: Canals patent. TMs are intact. Nose: Nares patent without drainage. Throat: No erythema, no exudates. NECK: Supple. No lymphadenopathy, no JVD. HEART: Regular rate and rhythm. No S3 or S4, no rub. LUNGS: Clear to auscultation bilaterally. Breathing is nonlabored. ABDOMEN: Soft, diffuse tenderness. EXTREMITIES: Present times 4. NEUROLOGIC: Cranial nerves II through XII intact. No focal deficits. SKIN: Warm and dry. No rash. LABORATORY DATA: CBC: White count 6.9, hemoglobin 13.3, hematocrit 38.4, and platelets 280. Chemistry shows a sodium of 138, potassium 3.9, chloride 104 and bicarb 19.1. BUN is 7 and creatinine 0.7. Glucose was 89. T-bili 0.55, AST 14, ALT 20, alk phos 56. Albumin 3.2, amylase 95, lipase 1057. No imaging obtained thus far with this hospitalization. Discussed case with specialist in [place], recommends MRI and MRCP to avoid causing additional problems with ERCP at this time. We will obtain the CT results with and without contrast from [facility] last weekend. The patient declines additional radiation at this time, agrees with plan. We will discuss case again with specialist in [place] to arrange for definitive diagnosis and treatment of this chronic pancreatitis. I appreciate his assistance in reviewing this case. Of note, the HISTORY AND PHYSICAL [id number] RIMA LARSON patient saw Dr. Davis, general surgeon, last Monday, had a followup; a.m. labs ordered. TRANSINT:[id number] Voice Confirmation ID: [id number] DOCUMENT ID: [id number] ALYSA LAROSE DO at 0706 CC: [id number] DICTATION DATE: 01/25/172001 LAST REMODELER REPAIRER: 01/25/[address] [facility] [address] [place] [address]
[2017-01-26 07:59] VITALS: BP 97/53
[2017-01-26 10:24] VITALS: Ht 170.2 cm; Wt 105.6 kg
[2017-01-26 11:46] VITALS: BP 101/61
--- NOTE | 2017-01-26 11:49 | NUR ---
DR. ABURTO IN ROOM WITH PATIENT. PT REPORTS PAIN 10/10 ON ABDOMEN. HYDROCODONE 10MG GIVEN PER ORDERS. WILL CONTINUE TO MONITOR PAIN.
--- NOTE | 2017-01-26 12:20 | NUR ---
PT NOT IN ROOM AT THIS TIME.
--- NOTE | 2017-01-26 13:10 | NUR ---
DC'D 20 GAUGE PERIPHERAL IV FROM LEFT WRIST. PT STATED THAT IT WAS PAINFUL AND WANTED IT OUT. RIGHT FOREARM PERIPHERAL IV STILL IN PLACE. NO OTHER NEEDS AT THIS TIME.
[2017-01-26 17:56] LABS: APPEARANCE CLEAR (CLEAR); BILIRUBIN NEGATIVE (NEGATIVE); COLOR YELLOW (YELLOW); GLUCOSE NEGATIVE (NEGATIVE); KETONE LARGE mg/dL (NEGATIVE); LEUKOCYTE ESTERASE NEGATIVE (NEGATIVE); NITRITE NEGATIVE (NEGATIVE); PROTEIN NEGATIVE (NEGATIVE); SPECIFIC GRAVITY 1.015 (1.005-1.020); UROBILINOGEN NORMAL (NORMAL)
--- NOTE | 2017-01-26 19:07 | NUR ---
PT ASKED TO BE DISCONNECTED FROM IV TO GO OUTSIDE.
[2017-01-26 20:00] VITALS: BP 102/49
[2017-01-27] VITALS: BP 100/69
[2017-01-27 03:43] VITALS: BP 108/64
[2017-01-27 05:10] LABS: BASOPHILS 0.5 % (0-2); EOSINOPHILS 8.1 % (0-7); HEMATOCRIT 35.1 % (36.0-48.0); IMMATURE GRANULOCYTES 0.2 % (0-5); LYMPHOCYTES 29.3 % (15-50); MCH 30.2 pg (26.0-34.0); MCHC 34.2 g/dL (31.0-37.0); MCV 88.4 fL (80.0-100.0); MEAN PLATELET VOLUME 10.8 fL (7.4-10.4); NEUTROPHILS 47.9 % (40-80); PLATELET COUNT 240 10x3/uL (130-400); RBC 3.97 10x6/uL (4.00-5.40); RDW 14.7 % (11.5-14.5)
[2017-01-27 05:12] LABS: WBC 4.2 10x3/uL (4.8-10.8)
[2017-01-27 05:41] LABS: ALBUMIN 2.7 g/dL (3.4-5.0); ALKALINE PHOSPHATASE 48 U/L (46-116); ALT (SGPT) 21 U/L (10-68); AMYLASE - SERUM 60 U/L (25-115); BILIRUBIN - DIRECT 0.08 mg/dL (0.00-0.30); BILIRUBIN - INDIRECT 0.32 mg/dL (0.00-1.00); C-REACTIVE PROTEIN 0.6 mg/dL (0.0-0.9); CALCIUM 8.5 mg/dL (8.5-10.1); CARBON DIOXIDE 24.5 mmol/L (21.0-32.0); CHLORIDE - SERUM 111 mmol/L (98-107); CREATININE - SERUM 0.6 mg/dL (0.6-1.3); GLUCOSE 114 mg/dL (74-106); LIPASE 601 U/L (73-393); PROTEIN - SERUM 5.9 g/dL (6.4-8.2); SODIUM 144 mmol/L (136-145); eGFR NON AFRICAN AMERICAN > 90 mL/min (90-120)
[2017-01-27 05:53] LABS: CALC OSMOLALITY 284 mosm/kg (275-300); POTASSIUM - SERUM 4.2 mmol/L (3.5-5.1); UREA NITROGEN 3 mg/dL (7-18)
--- NOTE | 2017-01-27 08:15 | NUR ---
ASSESSMENT PER FLOW SHEET.PT WITHOUT DISTRESS.DENIES NEEDS.CALL LIGHT IN REACH
[2017-01-27 08:18] VITALS: BP 112/59
[2017-01-27 13:03] VITALS: BP 107/63
--- NOTE | 2017-01-27 13:03 | NUR ---
Patient Name: RIMA LARSON Admission Status: ER Accout number: [id number] Admission Date: 01-25-2017 : 1970 Admission Diagnosis:OTHER CHRONIC PANCREATITIS Attending: ALYSA LAROSE Current LOS: 2 Anticipated DC Date: Planned Disposition: Home Primary Insurance: [employer] Discharge Planning Comments: CM met with patient to assess discharge planning needs. Patient lives independently with her and her daughter. She states that she has 2 steps to enter in her home and no stairs inside. She does have a walker and a CPAP machine. or patient mother will be the one to take her home. CM will continue to follow patient with d/c needs and plans [place]: [place]le [place] (spouse) [phone] Forestry Conservation Worker: Syeda Manzanares * Is the patient Alert and Oriented? Yes 0 * How many steps to enter\exit or inside your home? 2 0 * PCP LACHELLE 0 * [facility] [employer] 0 * Preadmission Environment Home with Family 0 * ADLs Independent 0 * Equipment CPAP Rolling Walker 0 * List name and contact numbers for known caregivers / representatives who currently or will assist patient after discharge: [place] [phone] * Community resources currently utilized None 0 * Additional services required to return to the preadmission environment? No 0 * Can the patient safely return to the preadmission environment? Yes 0 * Has this patient been hospitalized within the prior 30 days at any hospital? No 0 Grand Total: 0
[2017-01-27 16:21] VITALS: BP 109/67
--- NOTE | 2017-01-27 19:35 | NUR ---
REMAINS WITHOUT NEEDS.REMAINS WITHOUT DISTRESS.SOME NAUSEA AFTER FULL LIQUID DIET.CONT PLAN OF CARE
[2017-01-27 20:00] VITALS: BP 99/68
[2017-01-28] VITALS (7 sets, daily range): BP systolic 99–113; BP diastolic 55–70
[2017-01-28 04:19] LABS: ALBUMIN 2.6 g/dL (3.4-5.0); ALKALINE PHOSPHATASE 47 U/L (46-116); ALT (SGPT) 16 U/L (10-68); AMYLASE - SERUM 49 U/L (25-115); BILIRUBIN - TOTAL 0.38 mg/dL (0.2-1.3); CALC OSMOLALITY 273 mosm/kg (275-300); CALCIUM 8.4 mg/dL (8.5-10.1); CARBON DIOXIDE 23.3 mmol/L (21.0-32.0); CHLORIDE - SERUM 107 mmol/L (98-107); CREATININE - SERUM 0.5 mg/dL (0.6-1.3); GLUCOSE 104 mg/dL (74-106); LIPASE 471 U/L (73-393); POTASSIUM - SERUM 4.1 mmol/L (3.5-5.1); PROTEIN - SERUM 5.9 g/dL (6.4-8.2); SODIUM 139 mmol/L (136-145); UREA NITROGEN 2 mg/dL (7-18); eGFR NON AFRICAN AMERICAN > 90 mL/min (90-120)
--- NOTE | 2017-01-28 08:05 | NUR ---
ASSESSMENT PER FLOW SHEET.PT WITHOUT DISTRESS AT PRESENT,BUT [place] OF HEADACHE AND REQUESTING MEDS FOR PAIN.MONITOR FOR NEEDS.CALL LIGHT IN REACH.
--- NOTE | 2017-01-28 10:45 | NUR ---
FEELING NAUSEATED AFTER FEW BITES OF BREAKFAST.HAS ALREADY HAD ZOFRAN ORDERED.PT INSTRUCTED NOT TO EAT OR DRINK FOR A WHILE. SHE IS WITHOUT DISTRESS. REPORTED HEADACHE EARLIER AND MEDS WERE GIVEN ORDERED PER JUL. FAMILY IS AT BEDSIDE.MONITOR FOR NEEDS.
--- NOTE | 2017-01-28 18:54 | NUR ---
REMAINS WITHOUT EMESIS,STILL COMPLAINS OF SOME NAUSEA. WITHOUT CHANGE FROM INITIAL SHIFT ASSESSMENT.
--- NOTE | 2017-01-28 19:20 | NUR ---
LATE ENTRY DR TOMLINSON ON HER ROUNDS REQUESTED UPDATE REGARDING [facility] TRANSFER. REVIWED CM AND MD PROGRESS NOTES. TC TO [facility] PATIENT CARE MANAGEMENT. THE PATIENT IS NOT ON A TRANSFER LIST FOR [facility]. SPOKE WITH PRIMARY NURSE, TRAV. PATIENT HAD ABD MRI DONE TODAY. DR LAROSE HAS BEEN SPEAKING W/ [facility] MD. THEY HAD RECOMMENDED ADDITIONAL STUDIES. AWAIT TEST COMPLETION AND RESULTS. WILL BEGIN PREPARATION FOR TRANSFER. CM REQUEST TISSUE TECHNOLOGIST TO HAVE X/R STUDIES PLACED ON DISC. AWAIT MD TO MD DECISION. PATIENT HAS BEEN TOLD TRANSFER MAY NOT TAKE PLACE UNTIL MONDAY OR MONDAY PER THE PRIMARY NURSE, TRAV.
[2017-01-29 04:04] VITALS: BP 107/67
[2017-01-29 04:31] LABS: BASOPHILS 0.4 % (0-2); EOSINOPHILS 6.1 % (0-7); HEMATOCRIT 34.7 % (36.0-48.0); HEMOGLOBIN 11.7 g/dL (12-16); IMMATURE GRANULOCYTES 0.2 % (0-5); LYMPHOCYTES 30.9 % (15-50); MCH 29.7 pg (26.0-34.0); MCHC 33.7 g/dL (31.0-37.0); MCV 88.1 fL (80.0-100.0); MEAN PLATELET VOLUME 10.5 fL (7.4-10.4); MONOCYTES 12.8 % (2-11); NEUTROPHILS 49.6 % (40-80); PLATELET COUNT 210 10x3/uL (130-400); RBC 3.94 10x6/uL (4.00-5.40); RDW 14.3 % (11.5-14.5); WBC 4.8 10x3/uL (4.8-10.8)
[2017-01-29 04:47] LABS: AMYLASE - SERUM 45 U/L (25-115); LIPASE 500 U/L (73-393)
[2017-01-29 12:35] VITALS: BP 109/66
[2017-01-29 15:25] VITALS: BP 108/68
--- NOTE | 2017-01-29 16:49 | NUR ---
IV DCD WITH CATH INTACT.DISCHARGE INSTRUCTIONS,STATES UNDERSTANDING. LEFT UNIT VIA WHEELCHAIR.
--- NOTE | 2017-01-29 17:51 | NUR ---
LATE ENTRY 1000 DR BENOIT REQUEST CONTACT WITH [facility] REGARDING A BED. NO AVAILABLE BEDS. DR BENOIT'S CELL PHONE NUMBER WAS GIVEN. RECEIVED CB FROM JOSE AT [facility]. NO ACCEPTING MD AT [facility]. PATIENT IS TO FOLLOW UP W/ HER APPT WITH DR MAYORGA [facility]. IF THEY HAVE NOT CALLED BY 02/07/17 W/ APPT THE PATIENT IS TO CALL [phone]. PATIENT DISCHARGED TO HOME AT 1641.
== END 2017-01-29 17:16 | disposition home or self-care (01) | DRG 440 ==
LOC: D.ER 13:25 → D.MS 17:34
PROVIDERS: Emergency Medicine; Internal Medicine Gastroenterology; ADMIT Family Medicine
DX: K85.00 Idiopathic acute pancreatitis without necrosis or infection (principal); K86.1 Other chronic pancreatitis; Z98.84 Bariatric surgery status; K76.9 Liver disease, unspecified

== ENCOUNTER → 2017-02-28 10:06 | Outpatient (CLI) | payer BC ==
[2017-01-26 10:24] VITALS: BMI 36.6
[~2017-02-28 10:06] MED LIST changes: +BACLOFEN20 M1 PO; +BIOTIN5 MG PO; +MULTIPLE VITAMI1 TA1 PO; +TUMS X-STR300 MG PO
[2017-02-28 10:24] LABS: BASOPHILS 0.3 % (0-2); EOSINOPHILS 1.9 % (0-7); HEMATOCRIT 39.7 % (36.0-48.0); HEMOGLOBIN 13.5 g/dL (12-16); IMMATURE GRANULOCYTES 0.3 % (0-5); LYMPHOCYTES 10.6 % (15-50); MCH 30.6 pg (26.0-34.0); MEAN PLATELET VOLUME 9.7 fL (7.4-10.4); MONOCYTES 6.7 % (2-11); NEUTROPHILS 80.2 % (40-80); PLATELET COUNT 240 10x3/uL (130-400); RBC 4.41 10x6/uL (4.00-5.40); RDW 13.8 % (11.5-14.5); WBC 7.4 10x3/uL (4.8-10.8)
[2017-02-28 10:45] LABS: ALBUMIN 3.4 g/dL (3.4-5.0); ALKALINE PHOSPHATASE 49 U/L (46-116); ALT (SGPT) 17 U/L (10-68); AMYLASE - SERUM 56 U/L (25-115); BILIRUBIN - DIRECT 0.13 mg/dL (0.00-0.30); BILIRUBIN - INDIRECT 0.47 mg/dL (0.00-1.00); CALC OSMOLALITY 274 mosm/kg (275-300); CALCIUM 9.3 mg/dL (8.5-10.1); CHLORIDE - SERUM 104 mmol/L (98-107); CREATININE - SERUM 0.8 mg/dL (0.6-1.3); GLUCOSE 103 mg/dL (74-106); LIPASE 454 U/L (73-393); POTASSIUM - SERUM 3.5 mmol/L (3.5-5.1); PRE-ALBUMIN 21.1 mg/dL (18.0-35.7); PROTEIN - SERUM 7.2 g/dL (6.4-8.2); SODIUM 138 mmol/L (136-145); UREA NITROGEN 9 mg/dL (7-18); eGFR NON AFRICAN AMERICAN 82 mL/min (90-120)
== END | disposition home or self-care (01) ==
LOC: D.LAB 10:06
PROVIDERS: Surgery
DX: K85.90 Acute pancreatitis without necrosis or infection, unspecified (principal)

== ENCOUNTER → 2017-04-13 07:13 | Outpatient (CLI) | payer BC ==
[2017-01-26 10:24] VITALS: BMI 36.6
== END | disposition home or self-care (01) ==
LOC: D.US 07:13
DX: E04.1 Nontoxic single thyroid nodule (principal)

== ENCOUNTER 2017-05-12 04:14 | Emergency (ER) | payer BC ==
[2017-01-26 10:24] VITALS: BMI 36.6
[~2017-05-12 04:14] MED LIST changes: -BACLOFEN20 M1 PO; -BIOTIN5 MG PO; -MULTIPLE VITAMI1 TA1 PO; -TUMS X-STR300 MG PO
[2017-05-12 04:42] LABS: BASOPHILS 0.3 % (0-2); EOSINOPHILS 1.8 % (0-7); HEMATOCRIT 37.7 % (36.0-48.0); IMMATURE GRANULOCYTES 0.3 % (0-5); LYMPHOCYTES 15.6 % (15-50); MCH 30.3 pg (26.0-34.0); MCHC 34.5 g/dL (31.0-37.0); MCV 87.9 fL (80.0-100.0); MONOCYTES 8.1 % (2-11); NEUTROPHILS 73.9 % (40-80); PLATELET COUNT 232 10x3/uL (130-400); RBC 4.29 10x6/uL (4.00-5.40); RDW 13.4 % (11.5-14.5); WBC 7.8 10x3/uL (4.8-10.8)
[2017-05-12 04:56] LABS: ALBUMIN 3.4 g/dL (3.4-5.0); ALKALINE PHOSPHATASE 53 U/L (46-116); ALT (SGPT) 14 U/L (10-68); AMYLASE - SERUM 40 U/L (25-115); BILIRUBIN - TOTAL 0.78 mg/dL (0.2-1.3); CALC OSMOLALITY 280 mosm/kg (275-300); CARBON DIOXIDE 21.9 mmol/L (21.0-32.0); CHLORIDE - SERUM 106 mmol/L (98-107); CREATININE - SERUM 0.8 mg/dL (0.6-1.3); GLUCOSE 131 mg/dL (74-106); LIPASE 238 U/L (73-393); POTASSIUM - SERUM 3.2 mmol/L (3.5-5.1); PROTEIN - SERUM 6.8 g/dL (6.4-8.2); SODIUM 140 mmol/L (136-145); UREA NITROGEN 12 mg/dL (7-18); eGFR NON AFRICAN AMERICAN 82 mL/min (90-120)
[2017-05-12 05:06] LABS: APPEARANCE HAZY (CLEAR); BILIRUBIN NEGATIVE (NEGATIVE); COLOR DK YELLOW (YELLOW); EPITHELIAL CELLS RARE /hpf (0-5); GLUCOSE NEGATIVE (NEGATIVE); KETONE MODERATE mg/dL (NEGATIVE); NITRITE NEGATIVE (NEGATIVE); PROTEIN TRACE mg/dL (NEGATIVE); UROBILINOGEN NORMAL (NORMAL); WHITE CELLS - URINE 0-5 /hpf (0-5)
[2017-06-20] MEDS ORDERED: MULTIPLE VITAMI1 TA1 PO (11:18)
[2017-06-20] MEDS ORDERED: BACLOFEN20 M1 PO (11:18)
[2017-06-20] MEDS ORDERED: BIOTIN5 MG PO (11:19)
== END 2017-05-12 06:40 | disposition home or self-care (01) ==
LOC: D.ER 04:14
PROVIDERS: Family Medicine
DX: N20.1 Calculus of ureter (principal); K86.1 Other chronic pancreatitis; F17.200 Nicotine dependence, unspecified, uncomplicated

== ENCOUNTER 2017-06-21 05:50 | Day surgery (SDC) | payer BC ==
[2017-06-20 12:03] LABS: HEMATOCRIT 37.8 % (36.0-48.0); HEMOGLOBIN 13.1 g/dL (12-16); MCH 30.1 pg (26.0-34.0); MCHC 34.7 g/dL (31.0-37.0); MCV 86.9 fL (80.0-100.0); MEAN PLATELET VOLUME 9.7 fL (7.4-10.4); RBC 4.35 10x6/uL (4.00-5.40); RDW 13.6 % (11.5-14.5); WBC 5.3 10x3/uL (4.8-10.8)
[2017-06-20 12:10] LABS: APTT 32.2 SECONDS (22.8-39.4); INR 1.06 (0.85-1.17); PROTIME 13.4 SECONDS (11.6-15.0)
[2017-06-20 12:13] LABS: ALBUMIN 3.6 g/dL (3.4-5.0); ALKALINE PHOSPHATASE 47 U/L (46-116); ALT (SGPT) 15 U/L (10-68); BILIRUBIN - TOTAL 0.59 mg/dL (0.2-1.3); CALC OSMOLALITY 278 mosm/kg (275-300); CALCIUM 8.9 mg/dL (8.5-10.1); CARBON DIOXIDE 24.3 mmol/L (21.0-32.0); CHLORIDE - SERUM 105 mmol/L (98-107); CREATININE - SERUM 0.7 mg/dL (0.6-1.3); GLUCOSE 92 mg/dL (74-106); POTASSIUM - SERUM 3.5 mmol/L (3.5-5.1); PROTEIN - SERUM 7.1 g/dL (6.4-8.2); SODIUM 140 mmol/L (136-145); UREA NITROGEN 12 mg/dL (7-18); eGFR NON AFRICAN AMERICAN > 90 mL/min (90-120)
[~2017-06-21] VITALS: Ht 170.2 cm; Wt 90.0 kg
[2017-06-21] VITALS (10 sets, daily range): BP systolic 93–131; BP diastolic 58–82; Ht 170.2 cm; Wt 90.0 kg
--- NOTE | ~2017-06-21 | OP ---
PATIENT NAME: RIMA LARSON MEDICAL RECORD: [id number] :[birth year] LOCATION: D.2212 ADMISSION DATE: SURGEON: LAUREN DAVIS MD DATE OF OPERATION: 06/21/2017 PREOPERATIVE DIAGNOSIS: Right thyroid mass measuring 3 x 2.5 x 2.5 cm. 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 PROCEDURE PERFORMED: Right thyroid lobectomy and isthmusectomy. SURGEON: Lauren Davis MD ESTIMATED BLOOD LOSS: 150 cc. ANESTHESIA: General. COMPLICATIONS: None. SPECIMENS: Right thyroid lobe and isthmus. Case was clean. OPERATIVE COURSE: After consent was obtained, the patient was taken to the operating room and placed in supine position on the operating table. A shoulder roll was placed. A timeout was taken to confirm the correct patient and procedure. General anesthesia was given via endotracheal intubation after the neck was prepped and draped in typical sterile fashion. Local anesthetic was injected. An incision was made approximately 2 fingerbreadths above the sternal notch, 3 cm in each direction. The skin was incised with a #15 blade scalpel. Dissection continued through the platysma using electrocautery. The anterior jugular veins were tied off with 3-0 silk suture. Flaps were created with retraction of the platysma muscle. The median raphe was opened using electrocautery. The strap muscles were divided. The entire thyroid was markedly enlarged, it was hypervascular. The right thyroid lobe was mobilized medially. The inferior parathyroid glands on the right side were identified as well as the vessels. They were dissected, clips were placed, and the disected inferior thyroid veins were taken using electrocautery and clips. Next, the superior parathyroid gland was identified. The superior thyroid artery and vein were identified as well as the superior parathyroid gland. It was dissected, clips were placed as well, and the thyroid was dissected with electrocautery. Dissection continued towards the middle thyroid veins, which were identified. Two clips were placed and it was divided with electrocautery. This was continued until the entire right lobe was mobilized as well as the isthmus. The thyroid was taken off the trachea using electrocautery. The superior laryngeal nerve was identified and retracted, its course was followed until it was seen entering the trachea. There was no injury to the nerve, it was clearly identified. Due to the homogenous increase in size of the thyroid, the large palpable nodule was sent for frozen section, which revealed large benign follicular adenoma, the left lobe was evaluated. The strap muscles were gently dissected. There were no palpable nodules on the left thyroid. The wound was then copiously irrigated and suctioned. Hemostasis was obtained using Surgicel and electrocautery and clips as well as 3-0 silk ties. Once the wound bed was clean and dry, the strap muscles were reapproximated using 2-0 chromic suture. Platysma was reapproximated using 3-0 Vicryl. The skin was closed with a 4-0 Stratafix, Mastisol, and Steri-Strips. At the end of the case, all needle and instrument were correct. No complications occurred. The patient was extubated OPERATIVE REPORT [id number] RIMA LARSON and transferred to the PACU in stable condition. TRANSINT:[id number] Voice Confirmation ID: [id number] DOCUMENT ID: [id number] LAUREN DAVIS MD at 2113 CC: [id number] DICTATION DATE: 06/21/17 1033 WEBBING TACKER: 06/21/[address] [facility] [address] [place] [address]
[~2017-06-21 05:50] MED LIST changes: +BACLOFEN20 M1 PO; +BIOTIN5 MG PO; +MULTIPLE VITAMI1 TA1 PO
[2017-06-21 11:31] LABS: ALBUMIN 3.3 g/dL (3.4-5.0); CALCIUM 8.4 mg/dL (8.5-10.1)
[2017-06-21 17:49] LABS: CALCIUM 8.1 mg/dL (8.5-10.1); THYROID STIMULATING HORMONE 1.08 uIU/mL (0.36-3.74)
[2017-06-22 04:39] VITALS: BP 127/77
[2017-06-22 04:48] LABS: BASOPHILS 0.1 % (0-2); EOSINOPHILS 0.3 % (0-7); HEMATOCRIT 33.4 % (36.0-48.0); HEMOGLOBIN 11.3 g/dL (12-16); IMMATURE GRANULOCYTES 0.3 % (0-5); LYMPHOCYTES 19.4 % (15-50); MCHC 33.8 g/dL (31.0-37.0); MCV 88.6 fL (80.0-100.0); MEAN PLATELET VOLUME 9.9 fL (7.4-10.4); NEUTROPHILS 66.9 % (40-80); PLATELET COUNT 211 10x3/uL (130-400); RBC 3.77 10x6/uL (4.00-5.40); RDW 13.7 % (11.5-14.5)
[2017-06-22 04:51] VITALS: BP 106/65
[2017-06-22 04:57] LABS: WBC 7.6 10x3/uL (4.8-10.8)
[2017-06-22 05:29] LABS: ALBUMIN 2.8 g/dL (3.4-5.0); CALCIUM 8.2 mg/dL (8.5-10.1); THYROID STIMULATING HORMONE 2.43 uIU/mL (0.36-3.74)
[2017-06-22 06:31] VITALS: BP 115/72
[2017-06-22] MEDS ORDERED: TUMS X-STR300 MG PO (07:57)
[2017-06-22] MEDS ORDERED: HYDROCODON-ACE1 EAC7 PO (07:58)
[2017-06-22 08:35] VITALS: BP 122/73
== END 2017-06-22 11:21 | disposition home or self-care (01) ==
LOC: D.MS 05:50 → D.OPS 05:50 → D.PAN 08:00 → D.MS 10:57 → D.OPS 06-22 11:21
PROVIDERS: Anesthesiology; Surgery
DX: D34 Benign neoplasm of thyroid gland (principal); Z01.812 Encounter for preprocedural laboratory examination

== ENCOUNTER → 2017-06-29 12:11 | Outpatient (CLI) | payer BC ==
[2017-06-21 19:09] VITALS: BMI 31.1
[~2017-06-29 12:11] MED LIST changes: +TUMS X-STR300 MG PO
[2017-06-29 12:58] LABS: BASOPHILS 0.4 % (0-2); EOSINOPHILS 1.6 % (0-7); HEMATOCRIT 33.4 % (36.0-48.0); HEMOGLOBIN 11.4 g/dL (12-16); IMMATURE GRANULOCYTES 0.4 % (0-5); LYMPHOCYTES 27.9 % (15-50); MCH 29.8 pg (26.0-34.0); MCHC 34.1 g/dL (31.0-37.0); MCV 87.2 fL (80.0-100.0); MEAN PLATELET VOLUME 9.4 fL (7.4-10.4); MONOCYTES 8.5 % (2-11); NEUTROPHILS 61.2 % (40-80); RBC 3.83 10x6/uL (4.00-5.40); RDW 13.3 % (11.5-14.5); WBC 4.9 10x3/uL (4.8-10.8)
[2017-06-29 12:59] LABS: PLATELET COUNT 318 10x3/uL (130-400)
[2017-06-29 13:25] LABS: ALBUMIN 3.1 g/dL (3.4-5.0); ALKALINE PHOSPHATASE 49 U/L (46-116); ALT (SGPT) 15 U/L (10-68); BILIRUBIN - TOTAL 0.41 mg/dL (0.2-1.3); CALC OSMOLALITY 279 mosm/kg (275-300); CALCIUM 9.3 mg/dL (8.5-10.1); CARBON DIOXIDE 27.6 mmol/L (21.0-32.0); CHLORIDE - SERUM 106 mmol/L (98-107); CHOL - HDL RATIO 1.8 ratio (2.3-4.1); CHOLESTEROL, TOTAL 117 mg/dL (0-200); CREATININE - SERUM 0.7 mg/dL (0.6-1.3); GLUCOSE 96 mg/dL (74-106); HDL CHOLESTEROL 66 mg/dL (32-96); LDL CHOLESTEROL 39 mg/dL (0-100); LDL-HDL RATIO 0.6 ratio (1.5-3.5); POTASSIUM - SERUM 3.5 mmol/L (3.5-5.1); PROTEIN - SERUM 7.1 g/dL (6.4-8.2); SODIUM 141 mmol/L (136-145); T4 THYROXINE 10.7 ug/dL (4.7-13.3); THYROID STIMULATING HORMONE 0.84 uIU/mL (0.36-3.74); TRIGLYCERIDE 60 mg/dL (30-200); UREA NITROGEN 11 mg/dL (7-18); eGFR NON AFRICAN AMERICAN > 90 mL/min (90-120)
[2017-06-30 07:28] LABS: VITAMIN D 25 HYDROXY 45.3 ng/mL (30.0-100.0)
[2017-06-30 10:19] LABS: THYROGLOBULIN ANTIBODY <1.0 IU/mL (0.0-0.9); THYROID PEROXIDASE ABS 41 IU/mL (0-34)
== END | disposition home or self-care (01) ==
LOC: D.LAB 12:11
PROVIDERS: Surgery
DX: E06.3 Autoimmune thyroiditis (principal)

== ENCOUNTER → 2017-10-10 09:57 | Outpatient (CLI) | payer BC ==
[2017-06-21 19:09] VITALS: BMI 31.1
[2017-10-10 10:21] LABS: BASOPHILS 0.4 % (0-2); EOSINOPHILS 1.3 % (0-7); HEMATOCRIT 37.9 % (36.0-48.0); LYMPHOCYTES 20.3 % (15-50); MCH 30.1 pg (26.0-34.0); MCHC 34.3 g/dL (31.0-37.0); MCV 87.7 fL (80.0-100.0); MEAN PLATELET VOLUME 9.9 fL (7.4-10.4); MONOCYTES 7.9 % (2-11); NEUTROPHILS 70.1 % (40-80); RBC 4.32 10x6/uL (4.00-5.40); RDW 13.3 % (11.5-14.5); WBC 4.8 10x3/uL (4.8-10.8)
[2017-10-10 10:24] LABS: PLATELET COUNT 228 10x3/uL (130-400)
[2017-10-10 10:53] LABS: ALBUMIN 3.4 g/dL (3.4-5.0); ALKALINE PHOSPHATASE 46 U/L (46-116); ALT (SGPT) 16 U/L (10-68); BILIRUBIN - TOTAL 0.59 mg/dL (0.2-1.3); CALC OSMOLALITY 281 mosm/kg (275-300); CARBON DIOXIDE 27.4 mmol/L (21.0-32.0); CHLORIDE - SERUM 107 mmol/L (98-107); CHOL - HDL RATIO 2.3 ratio (2.3-4.1); CHOLESTEROL, TOTAL 172 mg/dL (0-200); CREATININE - SERUM 0.6 mg/dL (0.6-1.3); GLUCOSE 93 mg/dL (74-106); HDL CHOLESTEROL 76 mg/dL (32-96); LDL CHOLESTEROL 84 mg/dL (0-100); LDL-HDL RATIO 1.1 ratio (1.5-3.5); POTASSIUM - SERUM 4.3 mmol/L (3.5-5.1); PROTEIN - SERUM 6.9 g/dL (6.4-8.2); SODIUM 141 mmol/L (136-145); TRIGLYCERIDE 63 mg/dL (30-200); UREA NITROGEN 14 mg/dL (7-18); eGFR NON AFRICAN AMERICAN > 90 mL/min (90-120)
== END | disposition home or self-care (01) ==
LOC: D.LAB 09:57
PROVIDERS: Surgery
DX: Z01.812 Encounter for preprocedural laboratory examination (principal); Z00.00 Encounter for general adult medical examination without abnormal findings; K21.9 Gastro-esophageal reflux disease without esophagitis; K85.90 Acute pancreatitis without necrosis or infection, unspecified; E04.1 Nontoxic single thyroid nodule

== ENCOUNTER → 2017-11-23 09:10 | Outpatient (CLI) | payer BC ==
[2017-06-21 19:09] VITALS: BMI 31.1
== END | disposition home or self-care (01) ==
LOC: D.RT 09:00
DX: R06.09 Other forms of dyspnea (principal)

== ENCOUNTER → 2018-02-20 18:27 | Outpatient (CLI) | payer BC ==
[2017-06-21 19:09] VITALS: BMI 31.1
== END | disposition home or self-care (01) ==
LOC: D.MAMMO 08:45
DX: Z12.31 Encounter for screening mammogram for malignant neoplasm of breast (principal)

== ENCOUNTER → 2018-03-06 15:29 | Outpatient (CLI) | payer BC ==
[2017-06-21 19:09] VITALS: BMI 31.1
[2018-03-06 15:49] LABS: BASOPHILS 0.4 % (0-2); EOSINOPHILS 1.5 % (0-7); HEMATOCRIT 36.3 % (36.0-48.0); HEMOGLOBIN 12.5 g/dL (12-16); LYMPHOCYTES 32.6 % (15-50); MCH 30.3 pg (26.0-34.0); MCHC 34.4 g/dL (31.0-37.0); MCV 88.1 fL (80.0-100.0); MEAN PLATELET VOLUME 9.5 fL (7.4-10.4); MONOCYTES 8.6 % (2-11); NEUTROPHILS 56.9 % (40-80); PLATELET COUNT 218 10x3/uL (130-400); RBC 4.12 10x6/uL (4.00-5.40); RDW 13.4 % (11.5-14.5); WBC 5.3 10x3/uL (4.8-10.8)
[2018-03-06 16:14] LABS: CALC OSMOLALITY 280 mosm/kg (275-300); CALCIUM 8.2 mg/dL (8.5-10.1); CARBON DIOXIDE 23.9 mmol/L (21.0-32.0); CHLORIDE - SERUM 107 mmol/L (98-107); CREATININE - SERUM 0.7 mg/dL (0.6-1.3); GLUCOSE 87 mg/dL (74-106); POTASSIUM - SERUM 3.7 mmol/L (3.5-5.1); SODIUM 141 mmol/L (136-145); THYROID STIMULATING HORMONE 2.21 uIU/mL (0.36-3.74); UREA NITROGEN 14 mg/dL (7-18); eGFR NON AFRICAN AMERICAN > 90 mL/min (90-120)
[2018-03-07 10:22] LABS: FOLATE (FOLIC ACID) - SERUM 8.5 ng/mL (>3.0)
== END | disposition home or self-care (01) ==
LOC: D.LAB 15:29
PROVIDERS: Surgery
DX: I95.1 Orthostatic hypotension (principal)

== ENCOUNTER 2018-06-04 08:05 | Emergency (ER) | payer OTHER ==
[~2018-06-04] VITALS: Ht 170.2 cm; Wt 72.7 kg
[2018-06-04 08:10] VITALS: Ht 170.2 cm; Wt 72.7 kg
[2018-06-04 08:34] LABS: BASOPHILS 0.1 % (0-2); EOSINOPHILS 0.1 % (0-7); HEMATOCRIT 40.6 % (36.0-48.0); HEMOGLOBIN 14.3 g/dL (12-16); IMMATURE GRANULOCYTES 0.3 % (0-5); LYMPHOCYTES 1.2 % (15-50); MCH 30.8 pg (26.0-34.0); MCHC 35.2 g/dL (31.0-37.0); MCV 87.5 fL (80.0-100.0); MEAN PLATELET VOLUME 9.6 fL (7.4-10.4); NEUTROPHILS 95.3 % (40-80); RBC 4.64 10x6/uL (4.00-5.40); RDW 12.9 % (11.5-14.5); WBC 15.5 10x3/uL (4.8-10.8)
[2018-06-04 08:39] LABS: PLATELET COUNT 285 10x3/uL (130-400)
[2018-06-04 08:49] LABS: ALBUMIN 3.5 g/dL (3.4-5.0); ALKALINE PHOSPHATASE 35 U/L (46-116); ALT (SGPT) 16 U/L (10-68); AMYLASE - SERUM 47 U/L (25-115); BILIRUBIN - TOTAL 1.29 mg/dL (0.2-1.3); CALC OSMOLALITY 281 mosm/kg (275-300); CALCIUM 8.2 mg/dL (8.5-10.1); CARBON DIOXIDE 21.1 mmol/L (21.0-32.0); CHLORIDE - SERUM 106 mmol/L (98-107); CREATININE - SERUM 0.8 mg/dL (0.6-1.3); GLUCOSE 123 mg/dL (74-106); LIPASE 198 U/L (73-393); POTASSIUM - SERUM 3.9 mmol/L (3.5-5.1); PROTEIN - SERUM 7.3 g/dL (6.4-8.2); SODIUM 140 mmol/L (136-145); UREA NITROGEN 18 mg/dL (7-18); eGFR NON AFRICAN AMERICAN 82 mL/min (90-120)
[2018-06-04 11:20] LABS: APPEARANCE CLEAR (CLEAR); BILIRUBIN NEGATIVE (NEGATIVE); GLUCOSE NEGATIVE (NEGATIVE); KETONE MODERATE mg/dL (NEGATIVE); NITRITE NEGATIVE (NEGATIVE); PROTEIN NEGATIVE (NEGATIVE); SPECIFIC GRAVITY 1.025 (1.005-1.020); UROBILINOGEN NORMAL (NORMAL)
[2018-06-04 14:42] VITALS: BP 100/65
== END 2018-06-04 14:45 | disposition home or self-care (01) ==
LOC: D.ER 08:05
PROVIDERS: Family Medicine
DX: R11.10 Vomiting, unspecified (principal); E86.9 Volume depletion, unspecified

== ENCOUNTER → 2019-09-10 09:10 | Outpatient (CLI) | payer OTHER ==
[2018-06-04 08:10] VITALS: BMI 25.1
--- NOTE | 2019-09-12 08:47 | EC ---
PATIENT:RIMA LARSON DATE OF SERVICE: 09/10/19 SEX: F MEDICAL RECORD: [id number] DATE OF : [birth year] [facility] AGE OF PATIENT: 48 ADMISSION DATE: 09/10/19 REFERRING PHYSICIAN: INTERPRETING PHYSICIAN: MARQUIS RIVERO MD ECHOCARDIOGRAM REPORT ECHO CHARGES 4 ECHO COMPLETE Date: 09/10/19 CLINICAL DIAGNOSIS: MURMUR/ORTHOSTATIC HYPOTENSION/DIZZINESS ECHOCARDIOGRAPHIC MEASUREMENTS (adult normal given) AC root (d.<3.7cm) 3.2 cm LV Septum d (<1.2 cm> 1.2 cm Valve Excursion 1.9 cm LV Septum (systole) 1.4 cm Left Atria (s.<4.0cm> 3.0 cm LVPW d(<1.2cm) 1.0 cm RV (d.<2.3cm) 2.9 cm LVPW (sytole) 1.6 cm LV diastole(<5.6CM) 4.6 cm MV E-F(>70mm/sec) cm LV systole 2.9 cm LVOT Diameter 1.9 cm MV exc.(>10mm) cm Est.ejection fraction (50-75%) % DOPPLER: LVIT cm/sec A 43.0 cm/sec E 97.0 cm/sec LA cm/sec RVSP 31.0 mmHg LVOT 139 cm/sec AOP1/2T m/s Asc. Ao 142 cm/sec RVOT 69.0 cm/sec RA cm/sec PA 91.0 cm/sec AV Gradient Peak 8.0 mmHg AV Mean 4.1 mmHg AV Area 2.7 cm MV Gradient Peak 6.2 mmHg MV Mean 1.9 mmHg MV Area cm COMMENTS: OP - HC [place]: [address] Justice: 3 Dr. Weiner TAPE# PACS Pericardial Effusion N DATE OF SERVICE: Adequate 2D, color flow imaging, spectral Doppler, and M-Mode. No LVH. LV internal dimension is normal. Wall motion is normal. EF is greater than or equal to 55%. Aortic valve is tricuspid. No evidence of stenosis by Doppler interrogation. Left atrium is normal at 3.0 cm. Mitral valve shows no prolapse. Trace MR. Right-sided chambers are grossly normal. Mild TR. TRANSINT:[id number] Voice Confirmation ID: [id number] DOCUMENT ID: [id number] ECHOCARDIOGRAM REPORT [id number] RIMA LARSON GREGORY A MD at 0847 CC: [id number] DICTATION DATE: 09/11/19 112 METALSMITH HELPER: 09/11/19 1222 DEP CLI 09/10/19 [place] [id number] [place] [id number]
== END | disposition home or self-care (01) ==
LOC: D.HCCECHO 09:00
PROVIDERS: ATTEND Internal Medicine Interventional Cardiology
DX: R01.1 Cardiac murmur, unspecified (principal)